=== PATIENT | male | born 1990 | race Caucasian/White ===

== ENCOUNTER 2016-04-24 01:12 | Inpatient (IN) | payer OTHER ==
[~2016-04-24] VITALS: Ht 188 cm; Wt 90.4 kg
[~2016-04-24 01:12] MED LIST: ABILIFY5 M1 PO; ESCITALOPRAM OX10 MG PO
--- NOTE | 2016-04-24 01:20 | ED AMS/SEIZURE/WEAK/DIZZY ---
See Addendum History of Present Illness General Chief Complaint: Psychiatric Related Complaint Stated Complaint: "BIBA PER EMS ETOH, +SI" Source: patient Exam Limitations: intoxication Vital Signs & Intake/Output Vital Signs & Intake/Output . Allergies Coded Allergies: NO KNOWN ALLERGIES (05/07/11) Reconcile Medications Aripiprazole (Abilify) 5 MG TABLET 1 TAB PO DAILY DEPRESSION Escitalopram Oxalate 10 MG TABLET 1 TAB PO DAILY DEPRESSION Triage Nurses Notes Reviewed? yes Onset: Gradual Duration: week(s):, waxing and waning Timing: recent history Injury Environment: home Severity: moderate Modifying Factors: Worsens With: other (worse with alcohol). Associated Symptoms: suicidality HPI: 26-year-old gentleman with a history of alcohol abuse and dependence presents with suicidality in the context of having drunk 1 L of vodka throughout the evening. He expressed to his parents that he wanted to kill himself. He expressed to the medics that he also wanted to kill himself. He does not articulate a plan. Spinning in alcohol detox 3 times. He is unclear if he has ever had seizures from his alcohol withdrawal. He denies other active drug use. He denies hallucinations and homicidality. Past History Travel History Traveled to [place] past 21 day No Medical History Any Pertinent Medical History? see below for history Neurological: NONE EENT: NONE Cardiovascular: NONE Respiratory: NONE Gastrointestinal: NONE Hepatic: NONE Renal: NONE Musculoskeletal: NONE Psychiatric: alcohol dependence, depression, ADHD Endocrine: NONE Blood Disorders: NONE Cancer(s): NONE Surgical History Surgical History: Surgery for pyloric stenosis. Psychosocial History Who do you live with Family Services at Home None What is your primary language Italian Family History Family History, If Any: MOTHER (Skin cancer). grandmother (diabetes). Hx Contributory? No Review of Systems Review of Systems Constitutional: Reports: no symptoms. EENTM: Reports: no symptoms. Respiratory: Reports: no symptoms. Cardiovascular: Reports: no symptoms. GI: Reports: no symptoms. Genitourinary: Reports: no symptoms. Musculoskeletal: Reports: no symptoms. Skin: Reports: no symptoms. Neurological/Psychological: Reports: no symptoms. Hematologic/Endocrine: Reports: no symptoms. Immunologic/Allergic: Reports: no symptoms. All Other Systems: Reviewed and Negative Physical Exam Physical Exam General Appearance: well developed/nourished, mild distress, intoxicated Head: atraumatic, normal appearance Eyes: Bilateral: normal appearance. Ears, Nose, Throat: normal pharynx Neck: normal inspection, supple, full range of motion Respiratory: normal breath sounds, no respiratory distress Cardiovascular: regular rate/rhythm Gastrointestinal: normal bowel sounds Extremities: normal range of motion Neurologic/Psych: no motor/sensory deficits, awake, alert, oriented x 3 Skin: intact, normal color Core Measures ACS in differential dx? No CVA/TIA Diagnosis: No Severe Sepsis Present: No Septic Shock Present: No Progress Differential Diagnosis: alcohol intoxication, electrolyte imbalance, depression Plan of Care: Orders Procedure Date/time Status Continuous Observation Monitor 04/25 0520 Active Regular Diet 04/24 B Active Continuous Observation Monitor 04/24 0920 Active Continuous Observation Monitor 04/24 121 Active URINE DRUG SCREEN FOR ER ONLY 04/24 121 Active ETHANOL 04/24 121 Active COMPREHENSIVE METABOLIC PANEL 04/24 121 Active CBC WITHOUT DIFFERENTIAL 04/24 121 Active ED CRISIS PSYCH CONSULT 04/24 121 Active Initial ED EKG: none Hand-Off Endorsed To: ALISON FONTAINE,ED Morgan Endorsed Time: 0700 Pending: consult Departure Departure Disposition: HOME OR SELF CARE Condition: Stable Clinical Impression Primary Impression: Depression Secondary Impressions: Alcohol intoxication Referrals: SWAPNIL WEEKS APRN (PCP/Family) Departure Forms: Customer Survey General Discharge Information
--- NOTE | 2016-04-24 01:20 | NUR ---
PT BIBA ON PEER FOR SUICIDAL COMMENTS. PT ARRIVES WITH SLURRED SPEACH, ADMITS TO ETOH. STATES DRINKS A LITER OF VODKA DAILY AND HAS BEEN DOING SO FOR A YEAR. DENIES RECENT DRUGS, ADMITS TO INJECTING HEROIN 2 WEEKS AGO AND INJECTING MARIJUANA 1 WEEK AGO. UNSTEADY GAIT. PT COOPERATIVE FOR WANDING WITH LARGE EXAGERATED ARM MOVEMENTS OUT TO THE SIDE. COOPERATIVE FOR CHANGING INTO BLUE SCRUBS AND REMOVING EAR PIERCING. THEN MOOD BECAME LABILE, PT OUT OF THE ROOM MULTIPLE TIMES WITH UNSTEADY GAIT. YELLING PROFANITIES AND THREATENING STAFF. REDIRECTED BACK TO ROOM, MULTIPLE TIMES. SECURITY AND SITTER IN ATTENDANCE
--- NOTE | 2016-04-24 01:45 | NUR ---
SECURITY REPORTED THAT PATIENT PUNCHED THE DOOR FRAME AND THE WALL WITH HIS RIGHT HAND AND BANGED HIS HEAD AGAINST THE WALL. NO OBVIOUS INJURY NOTED. DR LION MADE AWARE
--- NOTE | 2016-04-24 01:55 | NUR ---
PT CONTINUES TO COME OUT OF ROOM, YELLING AT STAFF. REQUESTED BREATHALIZER AND THEN REFUSED TO DO BREATHALIZER. MAKING FISTS AND HOLDING THEM UP IN FRONT OF HIS CHEST, THREATENING STAFF. SECURITY AND DR LION IN ATTENDANCE. UNABLE TO DEESCALATE PT VERBALLY. MEDICATED WITH 2 MG ATIVAN, 5 MG HALDOL AND 50 MG BENADRYL FOR PT AND STAFF SAFETY. PT CONTINUES TO YELL AT STAFF, DEMANDING TO BE ALLOWED TO SMOKE, DEMANDING TO BE ALLOWED TO GO HOME, ASKING TO SEE HIS PARENTS. REPEATEDLY YELLING FOR HIS MOTHER "MOM! MOM! MOM!" IQRA REMAINS IN ATTENDANCE. WILL CONTINUE TO MONITOR
--- NOTE | 2016-04-24 02:00 | NUR ---
PT REQUESTED WATER. CUP OF WATER GIVEN TO PATIENT, PT DRANK THE WATER AND THEN THREW THE CUP ACROSS HIS ROOM.
[2016-04-24 02:51] LABS: ABSOLUTE BASOPHIL COUNT 0 /CUMM (0.0-0.2); ABSOLUTE EOSINOPHIL COUNT 0.2 /CUMM (0.0-0.7); ABSOLUTE GRANULOCYTE CT 3.5 /CUMM (1.4-6.5); ABSOLUTE MONOCYTE COUNT 0.4 /CUMM (0.10-0.60); BASOPHIL % 0.4 % (0.0-2.0); EOSINOPHIL % 2.1 % (0-5); GRANULOCYTE % 49.6 % (42.2-75.2); MEAN CORPUSCULAR HGB 30.7 PG (27.0-31.0); MEAN CORPUSCULAR HGB CONC 33.8 G/DL (33.0-37.0); MEAN CORPUSCULAR VOLUME 90.7 FL (80.0-94.0); MEAN PLATELET VOLUME 8.8 FL (7.4-10.4); PLATELET COUNT 193 /CUMM (130-400); RBC DISTRIBUTION WIDTH 12.6 % (11.5-14.5); RED BLOOD CELL CT 5.08 /CUMM (4.70-6.10); WHITE BLOOD CELL COUNT 7.1 /CUMM (4.8-10.8)
--- NOTE | 2016-04-24 03:13 | NUR ---
BLOODS DRAWN AND SEN TTO LAB
--- NOTE | 2016-04-24 05:10 | NUR ---
PT CONTINUES TO SLEEP. REGULAR RESPIRATIONS NOTED. SITTER REMAINS IN ATTENDANCE
--- NOTE | 2016-04-24 07:29 | NUR ---
PT APPEARS TO BE SLEEPING AT THIS TIME TIME WITH EQUAL CHEST RISE AND FALL NOTED SITTER PRESENT IN BH AREA AND AWARE URINE SAMPLE IS NEEDED WHEN PT IS AWAKE WILL CONTINUE TO MONITOR
--- NOTE | 2016-04-24 10:21 | NUR ---
PT HAS BEEN MOVING AROUND IN BED INDEPENDENTLY - SELF REPOSITIONING SITTERS AWARE PT NEEDS TO PROVIDE URINE WHEN AWAKE
--- NOTE | 2016-04-24 11:36 | NUR ---
JESSICA, TO/FROM RADIOLOGY. YAZMIN.
--- NOTE | 2016-04-24 11:41 | RADIOLOGY REPORT ---
EXAMINATION: XR HAND, RIGHT CLINICAL INFORMATION: Right hand pain after punching wall COMPARISON: None TECHNIQUE: Right hand, 3 views FINDINGS: Bones, joints and soft tissues of the hand and wrist are unremarkable. No arthritic deformity, acute fracture or malalignment. IMPRESSION: No acute osseous injury within the right hand.
--- NOTE | 2016-04-24 11:48 | NUR ---
PT UNABLE TO PROVIDE URINE SAMPLE AT THIS TIME, WATER PROVIDED. PT WILL TRY LATER.
--- NOTE | 2016-04-24 14:13 | NUR ---
BREATHALYZER .005 AT THIS TIME.
--- NOTE | 2016-04-24 14:43 | NUR ---
URINE SPECIMEN SENT TO LAB
--- NOTE | 2016-04-24 15:51 | ED PSY CRISIS COLLATERAL NOTE ---
Collateral Note Collateral Note Family/Inform/Angelito Contacts: Pt was BIBA on a PEER after his parents called that police because pt drank a bottle of alcohol and expressed SI. Crisis spoke with Pt's Mother Johanne Bynum . She expressed that she is very worried for pt and thinks he will kill himself. Mom explained that pt goes outdoors in the freezing cold in his shorts in the middle of the night. He has been stealing money. He sneaks out of the home by jumping off the roof of the house. Mom reports that pt was admitted to [facility] in September of 2015 after a suicide attempt of walking into traffic while intoxicated. Pt went straight to [place] from [facility] and relapsed 1 week after he left [place]. Pt returned to [place] again Oct to Dec and then went to a Rehab in [place] Dec to January. Pt has not followed up in any out pt tx and stopped taking his psych meds and has relapsed again. Mom reported that he stopped working and barely can get out of bed because he has been so depressed. Mom expressed great concern for pt and advocates for his admission to [facility] and once stabilized and would like him to go back to the [place] rehab as she thinks he did better there than [place]. Mom would like to be updated on pt's final dispo.
--- NOTE | 2016-04-24 16:38 | NUR ---
PT RESTING COMFORTABLY. DINNER ORDERED.
--- NOTE | 2016-04-24 18:34 | NUR ---
Crisis evaluation completed. Pt to be admitted to [facility].
--- NOTE | 2016-04-24 19:17 | ED PSYCH CRISIS CONSULTATION ---
Crisis Consult Basic Assessment Date of Consult: 04/24/16 Responsible Person/Accompanied By: Self Insurance Authorization: Insurance #1: Insurance name: GLORIA LEO Phone number: Policy number: [id number] Group number: [id number] Authorization number:[id number] Authorized for 1 day Review on 04/25/16. ED Provider: Patient's ED Provider: ESTELA LION MD Primary Care Physician: Patient's PCP: SWAPNIL WEEKS APRN PCP's Current Psychiatrist: Vanesa Schulte MD Chief Complaint: Psychiatric Related Complaint Patient's Quote: "I'm here because I said I wanted to kill myself" Present Illness: Pt is a 26 year old single male BIBA on PEER for threats of suicide. Pt's BAL was .276 two hours after he arrived at the ED. Initially pt was combative, argumentative, impulsive, physically aggressive punching doors in the ED. Pt was alert, oriented and sober during the interview. He states that he has been feeling depressed and hopeless, he can't find work. He denies homicidal thoughts and hallcinations. Mood depressed and anxious. Pt was , cooperative but clearly poor concentration and limited eye contact. Attitude was nonchalant. Pt was able to verbalize that he was here because "I want to kill myself", no plan. Pt provided some psychiatric history that included medication treatment for Depression & Anxiety. However he discontinued the medications approximately three weeks ago. Medications he mentioned were Ability, Neurotin, Lexapro and Trazodone. Also pt states he was diagnosed with ADHD as a child and took Ritalin until 6th grade. Pt states he was admitted here at [facility] before for a suicide attempt in August, where he attempted to walk into traffic while intoxicated. Also, he mentioned two years ago he tried to hang himself. Although he endorsed feeling suicidal, pt did not specify a plan. According to Johanne Bynum, pt's mother he has been drinking and using marijuana for weeks. She described a recent history where he stole $17,000 from them for his substance use. "he lives of off energy drinks, alcohol and drugs, I'm afraind he's gonna kill himself". Pt admitted to drinking 1 liter of Vodka today and said he has been drinking since New Years gabbi when he started with a glass of Champagne and shots with his parents. "I'm drinking their Vodka, I'm sure they're upset". Pt spent two months in substance abuse treatment at a [facility] in [place]. He was in treatment there from December, to March 2016. Pt was treated for opioid use disorder & cocaine use disorder ( crack cocaine). Prior to going to the Rehab in [place] he was admitted to substance abuse treatment at [facility] in August, after his inpatient treatment here at [facility]. Pt relapsed 1 week after he was discharged from [facility]. He was redmitted to [facility] in October and was discharged in December,. Patient's Address: [address] [place] [address] [place] Other Phone Number: Who Do You Live With? Patient and family Family/Informants Interviewed: Phone contact with Johanne Bynum . Mother feels pt is at risk and that he will act on threats to harm himself. She is convinced of this since the pt attempted suicide twice in the past. As recently as August, when he was admitted here at [facility]. Allergies - Coded Allergies: NO KNOWN ALLERGIES (05/07/11) Current Medications - Scheduled Medications Aripiprazole (Abilify) 5 MG TABLET 1 TAB PO DAILY DEPRESSION #30 TAB Prescribed by CONY JACKSON PA-C on 11/11/15 Escitalopram Oxalate 10 MG TABLET 1 TAB PO DAILY DEPRESSION #30 TAB Prescribed by CONY JACKSON PA-C on 11/11/15 Laboratory Results: Laboratory Tests 04/24/16 1431: Urine Opiates Screen < 100.00, Methadone Screen < 40, Barbiturate Screen < 60, Ur Phencyclidine Scrn < 6.00, Amphetamines Screen < 100, U Benzodiazepines Scrn < 85, Urine Cocaine Screen < 50, Urine Cannabis Screen 50.00 04/24/16 0215: Anion Gap 16, Estimated GFR > 60, BUN/Creatinine Ratio 10.0, Glucose 98, Calcium 9.3, Total Bilirubin 0.3, AST 23, ALT 25, Alkaline Phosphatase 63, Total Protein 7.1, Albumin 4.7, Globulin 2.4, Albumin/Globulin Ratio 2.0, CBC w Diff NO MAN DIFF REQ, RBC 5.08, MCV 90.7, MCH 30.7, RDW 12.6, MPV 8.8, Gran % 49.6, Lymphocytes % 41.9, Monocytes % 6.0, Eosinophils % 2.1, Basophils % 0.4, Absolute Granulocytes 3.5, Absolute Lymphocytes 3.0, Absolute Monocytes 0.4, Absolute Eosinophils 0.2, Absolute Basophils 0, PUBS MCHC 33.8, Serum Alcohol 276.0 Past History Past Medical History Neurological: NONE EENT: NONE Cardiovascular: NONE Respiratory: NONE Gastrointestinal: NONE Hepatic: NONE Renal: NONE Musculoskeletal: NONE Psychiatric: alcohol dependence, anxiety, depression, opioid dependence, ADHD Endocrine: NONE Blood Disorders: NONE Cancer(s): NONE Past Surgical History Surgical History: Surgery for pyloric stenosis. Psychosocial History Strengths/Capabilities: wants help, supportive family Physical Limitations (Interventions): none reported Psychiatric Treatment History Psych Treatment Psychiatric Treatment Yes Inpatient Treatment Yes Outpatient Treatment No Location of Treatment [place], [place] Reason for Treatment Opioid Dependence, Cocaine Abuse, ETOH Abuse Dates of Treatment December, December, January & March, Response to Treatment Relapse Diagnosis by History: ADHD - was prescribed meds as a child from 6yrs old - 13yrs old. Depression & Anxiety Substance Use/Abuse History Drug Use/Abuse Substances Used/Abused Yes Substance Used/Abused Alcohol First Use Age 17 Last Used 04/23/15 How much used/taken 1 Liter Vodka How often Daily For how long April 02, 2016 Route of use Oral Substance Abuse Treatment Substance Abuse Treatment Past Substance Abuse TX Yes Inpatient Treatment Yes Outpatient Treatment No Location of Treatment [place], [place] Reason for Treatment Opioid Use Disorder, Cocaine Use Disorder Dates of Treatment December, December, January, March, Response to Treatment Relapse on Marijuana & Alcohol Current Mental Status Mental Status Orientation: Person, Place, Situation Affect: Anxious, Depressed, Flat, Hopeless, Sad Speech: Pressured Neuro-vegetative: Appetite Decreased, Concentration Poor, Energy Decreased, Helpless, Sleep Disturbance Appearance Appearance- Dress/Hygiene: Disheveled, full facial hair, poor hygiene Behaviors Thought Process: Disorganized Thought Content: No insight Memory: Impaired Insight: Poor SI/HI Risk Assessment Past Suicidal Ideation/Attempts Yes Current Suicidal Ideation/Att Yes (No Plan) Past Homicidal Ideation/Att: No Current Homicidal Ideation/Attempts No Degree of Intent: Self Destructive/No , Thoughts and attempts Danger To: Self Gravely Disabled: Lack of Insight, Poor Impulse Control, Poor Judgment Risk Factors: high anxiety/distress, history of suicide atmpts, SA/MH hospitalized, substance abuse, poor impulse control, male Lethality Ratin PTSD Checklist PTSD Done? patient declined ED Management Sitter: Yes Restraints: No DSM5/PS Stressors/Medical Prob Diagnosis' (DSM 5, Stressors, Medical): 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 Departure Disposition Psych Medical Clearance Date: 04/24/16 Medically Cleared at: 0800 Time Started: 0515 Time Ended: 0602 Psychiatrist Consulted: Vanesa Schulte MD Date Disposition Established: 04/24/16 Time Disposition Established: 07 Plan for Disposition - Modality: Inpatient Psychiatry Facility: [facility] Follow-up Appt Date: 04/24/16 Follow-Up Appt Time: 2106 Contact: [facility] Telephone: [phone] Rationale for Disposition: Pt present to the ED intoxicated with suicidal thoughts. Pt has a history of suicidal attempts x2 including a hanging and an attempt to walk into traffic, September 2015. Pt discontinued his psychotropic medications approximately 3 weeks ago. Pt's symptoms are implusivity, manic aggressive behaviors, substance use and binge drinking. Pt presents in acute distress and is at risk for of suicide due to self-destructive behaviors, recent suicide attempt and ETOH & substance use. Type of IP Admission: Voluntary Referrals SWAPNIL WEEKS APRN (PCP/Family)
--- NOTE | 2016-04-24 19:42 | NUR ---
PT REMAINS CALM AND COOPERATIVE. OFFERS NO COMPLAINT. PENDING BED IN [facility].
--- NOTE | 2016-04-24 19:59 | NUR ---
ED [facility] UNABLE TO ACCEPT REPORT AT THIS TIME.
--- NOTE | 2016-04-24 20:54 | NUR ---
REPORT GIVEN TO ED [facility]
[2016-04-24] MEDS ORDERED: ST. JOHN'S WOR150 M1 PO (21:48)
[2016-04-24] MEDS ORDERED: LEMON BALM (21:50)
--- NOTE | 2016-04-24 21:50 | IP CRISIS DIAG ASSESS PSYCH ---
Diagnostic Assessment Basic Assessment Insurance Authorization: Insurance #1: Insurance name: GLORIA LEO Phone number: Policy number: [id number] Group number: [id number] Authorization number: [id number] Authorized 1 day Review on 04/25/16 Primary Care Physician: Patient's PCP: SWAPNIL WEEKS APRN PCP's Patient's Quote: "I'm here because I said I wanted to kill myself" Present Illness: Pt is a 26 year old single male BIBA on PEER for threats of suicide. Pt's BAL was .276 two hours after he arrived at the ED. Initially pt was combative, argumentative, impulsive, physically aggressive punching doors in the ED. Pt was alert, oriented and sober during the interview. He states that he has been feeling depressed and hopeless, he can't find work. He denies homicidal thoughts and hallcinations. Mood depressed and anxious. Pt was , cooperative but clearly poor concentration and limited eye contact. Attitude was nonchalant. Pt was able to verbalize that he was here because "I want to kill myself", no plan. Pt provided some psychiatric history that included medication treatment for Depression & Anxiety. However he discontinued the medications approximately three weeks ago. Medications he mentioned were Ability, Neurotin, Lexapro and Trazodone. Also pt states he was diagnosed with ADHD as a child and took Ritalin until 6th grade. Pt states he was admitted here at [facility] before for a suicide attempt in August, where he attempted to walk into traffic while intoxicated. Also, he mentioned two years ago he tried to hang himself. Although he endorsed feeling suicidal, pt did not specify a plan. According to Johanne Bynum, pt's mother he has been drinking and using marijuana for weeks. She described a recent history where he stole $17,000 from them for his substance use. "he lives of off energy drinks, alcohol and drugs, I'm afraind he's gonna kill himself". Pt admitted to drinking 1 liter of Vodka today and said he has been drinking since New Years gabbi when he started with a glass of Champagne and shots with his parents. "I'm drinking their Vodka, I'm sure they're upset". Pt spent two months in substance abuse treatment at a Rehabilitation Program called [facility] in [place]. He was in treatment there from December, to March 2016. Pt was treated for opioid use disorder & cocaine use disorder ( crack cocaine). Prior to going to the Rehab in [place] he was admitted to substance abuse treatment at [facility] in August, after his inpatient treatment here at [facility]. Pt relapsed 1 week after he was discharged from [facility]. He was redmitted to [facility] in October and was discharged in December,. Patient's Address: [address] [place] [address] [place] Other Phone Number: Who Do You Live With? Patient and family Feel Safe Where You Live? Yes Feel Safe in Your Relationship Yes Marital Status: single Do You Have Children? No Primary Language? Monegasque Language(s) Spoken At Home: Monegasque Family/Informants Interviewed: Phone contact with Johanne Bynum . Mother feels pt is at risk and that he will act on threats to harm himself. She is convinced of this since the pt attempted suicide twice in the past. As recently as August, when he was admitted here at [facility]. Allergies - Coded Allergies: NO KNOWN ALLERGIES (05/07/11) Current Medications - Scheduled Medications Aripiprazole (Abilify) 5 MG TABLET 1 TAB PO DAILY DEPRESSION #30 TAB Prescribed by CONY JACKSON PA-C on 11/11/15 Escitalopram Oxalate 10 MG TABLET 1 TAB PO DAILY DEPRESSION #30 TAB Prescribed by CONY JACKSON PA-C on 11/11/15 Consequences of Psych Med Use: Less Depressed and anxious, able to tolerate emotions and cope with daily stressors. Lab Results: Laboratory Tests 04/24/16 1431: Urine Opiates Screen < 100.00, Methadone Screen < 40, Barbiturate Screen < 60, Ur Phencyclidine Scrn < 6.00, Amphetamines Screen < 100, U Benzodiazepines Scrn < 85, Urine Cocaine Screen < 50, Urine Cannabis Screen 50.00 04/24/16 0215: Anion Gap 16, Estimated GFR > 60, BUN/Creatinine Ratio 10.0, Glucose 98, Calcium 9.3, Total Bilirubin 0.3, AST 23, ALT 25, Alkaline Phosphatase 63, Total Protein 7.1, Albumin 4.7, Globulin 2.4, Albumin/Globulin Ratio 2.0, CBC w Diff NO MAN DIFF REQ, RBC 5.08, MCV 90.7, MCH 30.7, RDW 12.6, MPV 8.8, Gran % 49.6, Lymphocytes % 41.9, Monocytes % 6.0, Eosinophils % 2.1, Basophils % 0.4, Absolute Granulocytes 3.5, Absolute Lymphocytes 3.0, Absolute Monocytes 0.4, Absolute Eosinophils 0.2, Absolute Basophils 0, PUBS MCHC 33.8, Serum Alcohol 276.0 Toxicology Screen Completed? Yes Results: positive Symptoms of Use: Suicidal threats and attempts Physically aggressive behaviors Emotional dysregulation Unsafe destructive behaviors Past History Past Medical History Medical History: None/Denies Past Surgical History Surgical History non-contributory Abuse/Trauma History Trauma History/Current Trauma: Denies Victim or Perpretator? victim (denied) Patient's Age at Time of Trauma: 0 History of Trauma/Abuse Treatment? No Abuse/Trauma Treatment: N/A Legal History Current Legal Status: none Have you ever been arrested? No Number of Arrests: [address] Dates: None reported Qa Tech None Psychosocial History Strengths/Capabilities: wants help, supportive family Physical Limitations (Interventions): none reported Psychiatric Treatment History Psych Treatment Psychiatric Treatment Yes Inpatient Treatment Yes Outpatient Treatment No Location of Treatment [place], [place] Reason for Treatment Opioid Dependence, Cocaine Abuse, ETOH Abuse Dates of Treatment December, December, January & March, Response to Treatment Relapse Diagnosis by History: ADHD - was prescribed meds as a child from 6yrs old - 13yrs old. Depression & Anxiety Risk Factors: high anxiety/distress, history of suicide atmpts, SA/MH hospitalized, substance abuse, poor impulse control, male Substance Use/Abuse History Drug Use/Abuse minimum 12mo Hx Substances Used/Abused Yes Substance Used/Abused Alcohol First Use Age 17 Last Used 04/23/15 How much used/taken 1 Liter Vodka How often Daily For how long April 02, 2016 Route of use Oral Substance Abuse Treatment Substance Abuse Treatment Past Substance Abuse [place] Yes Inpatient Treatment Yes Outpatient Treatment No Location of Treatment [place], [place] Reason for Treatment Opioid Use Disorder, Cocaine Use Disorder Dates of Treatment December, December, January, March, Response to Treatment Relapse on Marijuana & Alcohol Sexual History Sexually Active No # of partners 0 Sexual Orientation Heterosexual Use of Protection No Sexual Concerns: None reported Education History Highest Level of Education: high school/GED Preferred Learning Style: experiential Current Mental Status Mental Status Orientation: Person, Place, Situation Affect: Anxious, Depressed, Flat, Hopeless, Sad Speech: Pressured Neuro-vegetative: Appetite Decreased, Concentration Poor, Energy Decreased, Helpless, Sleep Disturbance Appearance Appearance- Dress/Hygiene: Disheveled, full facial hair, poor hygiene Behaviors Thought Process: Disorganized Thought Content: No insight Memory: Impaired Insight: Poor SI/HI Risk Assessment - Minimum 6mo History- Past Suicidal Ideation/Attempts Yes Current Suicidal Ideation/Att Yes (No Plan) Past Homicidal Ideation/Att: No Current Homicidal Ideation/Attempts No Degree of Intent: Self Destructive/No , Thoughts and attempts Danger To: Self Gravely Disabled: Lack of Insight, Poor Impulse Control, Poor Judgment Risk Factors: high anxiety/distress, history of suicide atmpts, SA/MH hospitalized, substance abuse, poor impulse control, male Lethality Ratin Needs/Init TX Plan/Goals: Monitor for safety Individual & group therapy Medication evaluation Discharge Planning and case management AUDIT-C Questionnaire: AUDIT-C Questionnaire: Response Value ETOH use in the past year 4 or more per week 4 # drinks typical/day 7-9 3 6 or > drinks per occasion Daily/Almost Daily 4 Total 11 DSM5/PS Stressors/Medical Prob Diagnosis' (DSM 5, Stressors, Medical): 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
--- NOTE | 2016-04-24 22:13 | NUR ---
26 YEAR OLD MALE PATIENT ADMITTED TO [facility] WITH DIAGNOSIS OF MAJOR DEPRESSION RECURRENT SEVERE WITH SUICIDAL IDEATION, HISTORY OF PAST SUICIDE ATTEMPTS, AND ALCOHOL DEPENDENCE; PATIENT WAS RECENTLY AT [facility] IN SEP 2015 AFTER TRYING TO WALK INTO TRAFFIC IN SUICIDE ATTEMPT WHILE DRUNK; 2 YEARS AGO HE ATTEMPTED TO HANG HIMSELF; HE DENIES A CURRENT PLAN; AFFECT BLAND, SOMEWHAT HYPERACTIVE; WHEN ASKED WHAT BROUGHT HIM TO THE HOSPITAL, HE STATED HE DID NOT REMEMBER; MOOD CONSTRICTED, NOT TALKATIVE; DID NOT SEEM INVESTED IN ADMISSION TO HOSPITAL; HE DID NOT RESPOND TO STAFF ATTEMPT TO GET HIM TO [place] ON SUICIDAL FEELINGS; MOOD SEEMED INAPPRPRIATELY LIGHT FOR CIRCUMSTANCES; HE STATED HIS INTENTION TO NOT TAKE ANY PRESCRIPTION MEDICATIONS WHILE HE IS HERE AT [facility]; HE OUTLINED SOME HERBAL SUPPLEMENTS HE HAS BEEN TRYING FOR HIS ADHD SYMPTOMS; SKIN INTACT; DR. DOCKERY WRITING ADMISSION ORDERS; DR. BURGOS NOTIFIED FOR H&P; PATIENT REPORTED DRINKING 1 LITER OF VODKA YESTERDAY, BUT DID NOT SEEM ABLE TO GIVE A DAILY ESTIMATE OF ALCOHOL USE; HE REPORTS CANNABIS USE BUT DENIES OTHER DRUG USE AT THIS TIME; HE REPORTS SOME SORENESS IN HIS RIGHT HAND FROM PUNCHING A DOOR IN EMERGENCY DEPARTMENT WHILE STILL INTOXICATED; HE DENIED INTENT TO HARM HIMSELF WHILE IN THE HOSPITAL AND ALSO DENIED INTENTION OF ANY FURTHER AGGRESSIVE BEHAVIOR WHILE IN THE HOSPITAL.
[2016-04-25] VITALS (9 sets, daily range): BP systolic 123–141; BP diastolic 60–86
--- NOTE | 2016-04-25 06:30 | NUR ---
PATIENT APPEARED TO SLEEP MOST OF THE NIGHT; VITAL SIGNS WNL; NO ISSUES.
--- NOTE | 2016-04-25 11:55 | SOCIAL WORKER SOCIAL HX PSYCH ---
IRVING ROGEL 04/25/16 1155: Social History Basic Assessment Insurance Authorization: Insurance #1: Insurance name: GLORIA LEO Phone number: Policy number: [id number] Group number: [id number] Authorization number: [place] Source of Income/Entitlements: employment Primary Language? Canadian Language(s) Spoken At Home: [place] Past History Past Medical History Neurological: NONE EENT: NONE Cardiovascular: NONE Respiratory: NONE Gastrointestinal: NONE Hepatic: NONE Renal: NONE Musculoskeletal: NONE Psychiatric: alcohol dependence, anxiety, depression, opioid dependence, ADHD Endocrine: NONE Blood Disorders: NONE Cancer(s): NONE Past Surgical History Surgical History: Surgery for pyloric stenosis. /Family History Place/Country of Origin: [place] Childhood Family Constellation: Both parents, 2 sisters Primary Childhood Caretakers: father, mother Family Life During Childhood: Good DCF Involvement? No Relationship w/Mother: we fight, argue sometimes about things. I sometimes disappear for days. Relationship w/Father: good Any Sibling(s)? Yes Sibling's Gender(s)/Age(s): female Sibling 1:, female Sibling 2: Relationship w/Sibling(s): 11yo sisterMichelle - she is developmentally challenged - has Autism and [place] 25yo sister, Peg Relationship w/Friends: some good friends. Family Psych/Sub Abuse/Add Hx: Denies Abuse/Trauma History Trauma History/Current Trauma: Denies Victim or Perpretator? victim (denied) Patient's Age at Time of Trauma: 0 History of Trauma/Abuse Treatment? No Abuse/Trauma Treatment: N/A Legal History Have you ever been arrested No Number of Arrests: 0 Hx of Juvenile Legal Charges? Yes If Yes: 18yo Breaking and entering - used [place] - did community service Hx of Adult Legal Charges? No Oracle Database Consultant None Psychosocial History Primary Support System: father, mother, sibling(s) Strengths/Capabilities: wants help, supportive family Physical Limitations (Interventions): none reported Last Physical: Can't remember Last Seizure: 2yrs ago History of Blackouts? No ADL Limitations: difficulty falling asleep 6-7 hours of sleep [place]/Social/Peer Relations some friends Meaningful Activities: dirt bike, jet ski, Quads, Motor bikes - like to fix them and ride them Childhood Rastafari: Amish Current Lutheran Affiliation: Amish Is Spirituality Important to You? No Patient's Ethnicity: Xenia, Kazakh, Are There Developmental Issues? No Milestones Achieved: WNL Psychiatric Treatment History Psych Treatment Inpatient Treatment Yes Outpatient Treatment No Location of Treatment [place], [place] Reason for Treatment Opioid Dependence, Cocaine Abuse, ETOH Abuse Dates of Treatment December, December, January & March, Response to Treatment Relapse Diagnosis: ADHD - was prescribed meds as a child from 6yrs old - 13yrs old. Depression & Anxiety Psychodynamic Issues: Alcohol abuse, drug use recent past, financial issues, employment issues. Risk Factors: high anxiety/distress, history of suicide atmpts, SA/MH hospitalized, substance abuse, poor impulse control, male Substance Use/Abuse History Drug Use/Abuse Substance Used/Abused Alcohol First Use Age 17 Last Used 04/23/15 How much used/taken 1 Liter Vodka How often Daily For how long April 02, 2016 Route of use Oral Have You Ever Attended AA? No Symptoms of Use: Suicidal threats and attempts Physically aggressive behaviors Emotional dysregulation Unsafe destructive behaviors Substance Abuse Treatment Substance Abuse Treatment Inpatient Treatment Yes Outpatient Treatment No Location of Treatment [place], [place] Reason for Treatment Opioid Use Disorder, Cocaine Use Disorder Dates of Treatment December, December, January, March, Response to Treatment Relapse on Marijuana & Alcohol Sexual History Sexually Active No # of partners 0 Sexual Orientation Heterosexual Use of Protection No Sexual Concerns: None reported Education History Highest Level of Education: high school/GED Highest Grade Completed: 12th Preferred Learning Style: experiential HX of Learning Difficulties: None reported Barriers to Learning: None reported Special Communication Needs: None reported Employment History No. 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 History Have You Been in The ? No Current Mental Status Mental Status Orientation: Person, Place, Situation Affect: Anxious, Depressed, Flat, Hopeless, Sad Speech: Pressured Neuro-vegetative: Appetite Decreased, Concentration Poor, Energy Decreased, Helpless, Sleep Disturbance Appearance Appearance- Dress/Hygiene: Disheveled, full facial hair, poor hygiene Behaviors Thought Process: Disorganized Thought Content: No insight Memory: Impaired Insight: Poor SI/HI Risk Assessment Past Suicidal Ideation/Attempts Yes Current Suicidal Ideation/Att Yes (No Plan) Past Homicidal Ideation/Att: No Current Homicidal Ideation/Attempts No Degree of Intent: Self Destructive/No , Thoughts and attempts Danger To: Self Gravely Disabled: Lack of Insight, Poor Impulse Control, Poor Judgment Lethality Ratin - Conclusion and Recommendations for treatment - and discharge planning YEVGENIY DORSEY LCSW 04/25/16 1346: Social History Basic Assessment Insurance Authorization: Insurance #1: Insurance name: GLORIA LEO Phone number: Policy number: [id number] Group number: [id number] Authorization number: Curr Source of Income/Entitlements: employment Primary Care Physician: Patient's PCP: SWAPNIL WEEKS APRN PCP's Present Problem: Pt arrived to ER combative and intoxicated, upon reevaluation pt was suicidal after disappointment of relapsing on etoh. Pt is impulsive and can be wreckless. Primary Language? Canadian Language(s) Spoken At Home: [place] Living Situation Other Living Arrangement: relative's/guardian's ezekiel Feel Safe Where You Are Living Yes Feel Safe in Relationships? Yes Allergies - Coded Allergies: NO KNOWN ALLERGIES (05/07/11) Current Medications - Scheduled Medications Aripiprazole (Abilify) 5 MG TABLET 5 MG PO DAILY mood stabilization #14 TAB Prescribed by GORDY WEINER APRN on 04/28/16 Escitalopram Oxalate (Lexapro) 10 MG TABLET 10 MG PO DAILY depression/anxiety #14 TAB Prescribed by GORDY WEINER APRN on 04/28/16 Scheduled PRN Medications Hyoscyamine (Levsin) 0.125 MG TABLET 1 TAB PO Q4 PRN ABDOMINAL SPASMS #30 TAB Prescribed by MARIO ZAVALETA on 05/17/16 Past History /Family History Place/Country of Origin: [facility] Childhood Family Constellation: 1 older sister, 1 younger sister Primary Childhood Caretakers: father, mother Family Life During Childhood: great, parents raised me well, always provided for us DCF Involvement? No Mother's Age (Current/): 45 Relationship w/Mother: get along Father's Age (Current/): 46 Relationship w/Father: good Any Sibling(s)? Yes Sibling's Gender(s)/Age(s): female Sibling 1:, female Sibling 2: Relationship w/Sibling(s): good, we are close Relationship w/Friends: very few friends at this time Family Psych/Sub Abuse/Add Hx: drug of choice (denies) Abuse/Trauma History Trauma History/Current Trauma: Denies Legal History Current Legal Status: none Pending Court Dates: denies Have you ever been arrested Yes Number of Arrests: 3 Hx of Juvenile Legal Charges? Yes If Yes: unknown Hx of Adult Legal Charges? No Civil Proceedings: none Domestic Relations Court: none Child Protective Serv Involvmnt none Oracle Database Consultant none Psychosocial History Primary Support System: father, mother Strengths/Capabilities: likes to read, wants another job Weaknesses: impulsive Last Physical: unknown History of Seizures? No History of Blackouts? Yes Last Blackout: when he drinks ADL Limitations: unknown [place]/Social/Peer Relations limited sober supports Meaningful Activities: works on cars, reads, wants to get operating license for heavy equipment Childhood Rastafari: no samaritan stated Current Lutheran Affiliation: no samaritan stated Is Spirituality Important to You? yes Cultural/Ethnic Issues: denies Are There Developmental Issues? No Milestones Achieved: fine motor, gross motor Psychiatric Treatment History Psychodynamic Issues: Pt has been spotty with recovery although has made attempts to get involved in AA since he was 19. Risk Factors: high anxiety/distress, SA/MH hospitalized, substance abuse, poor impulse control, male Substance Use/Abuse History Have Had Periods of Sobriety? Yes Explain: 3 weeks clean from illegal substances, recent binge was etoh. Relapse History? Yes Explain: 3 weeks clean from illegal substances, recent binge was etoh. Have You Ever Attended AA? Yes Do You Attend AA Currently? No Do You Have a Sponsor? No Other Community Resources Used: plans to attend AA again, has been "in rooms" since he was 19 Sexual History Sexually Active No # of partners 0 Sexual Orientation Heterosexual Sexual Concerns: denies Education History Highest Level of Education: high school/GED Number of College Years: 0 Preferred Learning Style: experiential HX of Learning Difficulties: None reported, ADHD? 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 of Jobs in Last 5 Years: 5 Attendance: Normal Performance: Average Comments: Pt looking to gain a liscense to operate [employer] History Have You Been in The ? No Current Mental Status - Conclusion and Recommendations for treatment - and discharge planning - Conclusion and Recommendations for treatment - and discharge planning
--- NOTE | 2016-04-25 11:55 | SOCIAL WORKER PROG NOTE PSYCH ---
Social Work Progress Note Progress Note Pt was cooperative, and did not mention wanting to leave the hospital, he admits to suicidal thoughts and upset with relaspe, he reports being impulsive, and is aware that his actions have been risky. Pt exhibits litttle insight. 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 He reports being interested in returning to . Pt completed psychosocial.
--- NOTE | 2016-04-25 13:40 | CPS MD/APRN INITIAL ASSE PSYCH ---
Psychiatric Admission Project Superintendent's Note Reviewed: Yes Patient Seen and Examined: Yes Identifying Information: Patient is a 26-year old male. Chief Complaint: "I drank a little bit too much and said I wanted to kill myself, but I dont." Reaction to Hospitalization: "I just want to go home." History of Present Illness Onset of Illness: Patient is a 26-year old male with a history of depression and anxiety, alcohol use disorder, and recent history of cannabis use disorder, opiate use disorder, crack/cocaine use disorder (in remission since 01/2016). Patient had been hospitalized [facility] (09/02/15 - 09/08/15) following intoxication on alcohol and attempting to walk into traffic while under the influence. He presented to ED on 04/24/16 by ambulance on a PEER for threats of suicide with BAL=0.276. Had been combative and aggressive while in ED. On encounter today, patient could not recall the events leading to present hospitalization. Could only recall that he had been drinking. He denies SI, HI, AVH. He denied acute symptoms of anxiety and depression. Denied feeling hopeless , helpless, and worthless. Denies changes in appetite and sleep. He reported being resistant to trialing all psychotropic medications, and reported "I don't have any symptoms to treat, I'm happy, I'm fine." Patient reported that if he is started on medications while in hospital, he will stop them when he is discharged. Patient appeared to minimize his alcohol use during encounter. He had limited insight into risky consequences which have resulted from his alcohol use (present circumstance, and last inpt hospitalization in where he attempted to walk into traffic while intoxicated). At present, patient exhibits low motivation to stop drinking. He denied urges/cravings to use alcohol. He reported being sober from all other illicit substances since 01/2016, when he was admitted to a [facility] rehab. Circumstances Leading to Admission: Alcohol intoxication, reports of +SI. Problem(s) Justifying Need for Admission: Pt reported + SI, no plan. Past Psychiatric History Past Diagnosis(es)- if any: Unspecified Depression Alcohol use disorder Polysubstance use disorder (Heroin, cocain, cannabis) ADHD by hx per pt report Past Precipitating Factors- if any: Polysubstance use - Include inpatient and outpatient treatment Treatment History: Inpatient: [facility] (09/02/15-09/08/15) Outpatient: Pt denied. Substance abuse rehabs: [facility] x 2 in (2014 + 2015) [facility]) 01/2016 - 03/2016 History of Suicide Attempts or Gestures Patient reported walking into traffic while intoxicated which resulted in his 2015 [facility] hospitalization. Per Crisis Eval, patient admitted to attempting to hang himself "2 years ago." When confronted with this on interview, patient denied. Substance Abuse History: Alcohol: pt reported sporadic "binge drinking." Could not recall how much he drinks on each encounter, as he reported a history of blacking out. OC:04/23/16. Reported OC prior to that was on 2015. Denied a history of complicated alcohol withdrawal. Denied history of withdrawal Szs or DTs. Patient denied the use of all other illicit substances. Reported OC of crack/ cocaine, heroin and cannabis were in 01/2016 prior to [place] rehab stay. Tobacco: 1PPD cigarettes. Allergies: Coded Allergies: NO KNOWN ALLERGIES (05/07/11) Home Med List: Patient denied taking prescribed medications outside of hospital. Reported last taking prescription medications was between 01/2016-03/2016 at rehab. Reported running out of Abilify and Lexapro, and then never resuming psychotropic med management. Reported taking the following supplements at home x last 2 days: [place]'s Wart, 2 caps of 150mg daily. Lemon [place] (dose unknown) Valerian root (dose unknown) Reviewed the risks of using prescribed antidepressants together with [place]'s Wart and other supplements. Patient verbalized understanding of education. - Include any medical condition(s) that may - impact the patient's recovery/remission Past Medical History: Pt denied. Past History Medical History Neurological: NONE EENT: NONE Cardiovascular: NONE Respiratory: NONE Gastrointestinal: NONE Hepatic: NONE Renal: NONE Musculoskeletal: NONE Psychiatric: alcohol dependence, anxiety, depression, opioid dependence, ADHD Endocrine: NONE Blood Disorders: NONE Cancer(s): NONE History of MRSA: No History of VRE: No History of CDIFF: No Isolation History: Standard Surgical History Surgical History: non-contributory Psychiatric Family/Social Hx Family History Psychiatric Illness: Mother - depression Pt denied other known family history of psychiatric illness. Substance Use: Patient denied a known family history of substance abuse. Suicides: Patient denied a known family history of suicide attempts. Social History Living Situation: Patient lives at home with parents, 12 y/o sister, and 26y/o mentally handicapped sister in [place]. Significant Relationships (family/friends): Patient reported his parents as being his primary supports. Education: HS Diploma Vocation/Occupation: Last employment was for a [employer]. Reported he temporarily is not working. Legal: Patient reported prior legal charges at 19y/o for breaking and entering. Denied present legal charges. Healthly Behaviors Screening Tobacco Screening Tobacco Use from ED Docu: Current Daily Use Daily Tobacco Use Amount/Type: => 5 Cigarettes daily - If tobacco counseling indicated - the following topics are required. - #1 Recognizing dangerous situations. - #2 Coping Skills. - #3 Basic information about quitting. Status of Tobacco Cessation Counseling: #1, #2 AND #3 Completed Cessation Med Status: Nicotine Patch Ordered Alcohol Screening - ETOH screen POS if BAL >=80 or Audit-C>= M4/F3 Audit-C Score from Diag Assess: 11 Blood Alcohol Level: Laboratory Tests 04/24 0215 Toxicology Serum Alcohol (<10 MG/DL) 276.0 Alcohol Use Screening Results: Pos per Audit C &/or BAL - If ETOH counseling indicated - the following topics are required. - #1 Express concern about the patient's - drinking at unhealthy levels, include informing - of national norms for moderate drinking: - men <= 14 drinks/week, max 4 drinks/occasion - women <= 7 drinks/week, max 3 drinks/occasion - #2 Providing feedback, including linking alcohol to - negative physical effects (liver injury, hypertension) - negative emotional effects (relationship problems and - depression) - negative occupational consequences (reduced work - performance) - #3 Advising the patient to abstain from alcohol or - to drink below national norms for moderate drinking - (as listed above). Status of ETOH Use Counseling: #1, #2 AND #3 Completed. Metabolic Screening - Screen if on a Neuroleptic Medication - Metabolic screening should include: - Blood Pressure, BMI, Glucose or Hgb A1c, & a - Lipid profile from within the past 365 days. Metabolic Screening () Not Applicable, patient not on a neuroleptic. OR ([X]) Patient on a neuroleptic(s) . Enter below results for Glucose or Hemoglobin A1C, and lipid panel if obtained during the last 365 days. BMI: 25.600 Blood Pressure: 123/86 Laboratory Results (If applicable): Lipid panel ordered for tomorrow morning. Lab Glucose 98 mg/dL 04/24/16 0215 Exam and Plan Mental Status Examination Ambulation Status: Steady and independent Appearance: Tall, blonde hair, , athletic build. Wearing blue paper scrubs. Well- groomed. Attitude towards examiner: Calm, generally cooperative. Psychomotor activity: WNL Behavior: WNL Quality of speech: Normal in rate, tone and volume. Affect: Full-range Mood: "Fine" Suicidal Ideation: Pt denied. Homicidal Ideation: Pt denied. Hallucinations: Pt denied AH/VH/TH. Paranoid/Delusional Material: None evident. Difficulties with thought organization: None evident. Insight: Limited Judgment: Limited Orientation: A&Ox3 Cognition: Grossly intact Memory Function: Grossly intact Estimate of intellectual functioning: Average Assets/Strengths Patient Identified Assets/Strengths: Supportive family Impression/Plan Impression and Plan: Patient is a 26-year old male with a history of unspecified depression, polysubstance use, and current alcohol use disorder who presented to ED by ambulance on PEER after making suicidal threats in the context of alcohol intoxication secondary to unclear psychosocial stressors, lack of outpatient psychiatric treatment/recovery support, limited coping, judgement and insight surrounding alcohol use. Patient is resistant to starting psychotropic medications at present, and feels strongly about being discharged as he feels there are no underlying symptoms to target with inpatient level of care. Termination of voluntary offered to patient. - Include all active medical diagnosis that require tx DSM 5 Diagnosis(es): MDD, recurrent, severe Alcohol use disorder, severe Opioid use disorder, in remission since 01/2016 Cocaine Use disorder, in remission since 01/2016 Cannabis use disorder, in remission since 01/2016 - Initial Tx Plan for Active Psych & Medical Conditions Treatment Plan: 1. Monitor the patient on unit for safety ,suicidal ideation, mood and alcohol withdrawal. 2. Q4H CIWA w/awake monitoring for alcohol withdrawal. Utilize prn ativan per CIWA protocol. VSS. 3. Continue to offer Lexapro 10mg daily for depression/anxiety. 4. Continue to offer Abilify 5mg daily for mood stabilization. 5. Admission H&P per video producer team. 6. Obtain collateral from family. 7. Once clinically stable, patient will be referred to an appropriate level of dual treatment. 8. Lipid panel scheduled for tomorrow morning at 0600. - Factors that would help patient function - in a less restrictive setting. Factors: Alleviation of suicidal ideation. Mood stabilization. Abstain from all substances. Referral to appropriate level of psychiatric care post-discharge.
--- NOTE | 2016-04-25 14:44 | NUR ---
PT WAS NOT VISIBLE MUCH IN THE [place] TODAY. PT STAYED MOST OF THE TIME IN HIS BEDROOM, SLEEPING. HE DID NOT PARTICIPATE IN ANY GROUPS, HAD SOME INTERACTIONS WITH PEERS BETWEEN GROUPS. HE HAS BEEN COMPLIANT ABOUT GETTING HIS VITALS TAKEN. WHEN ASKED IF PT HAS THOUGHTS OF HARMING SELF, PT DENIES.
--- NOTE | 2016-04-25 15:19 | History & Physical ---
General Information and HPI MD Statement: I have seen and personally examined LORRI SINGH and documented this H&P. The patient is a 26 year old M who presented with a patient stated chief complaint of suicidal ideation Source of Information: patient Exam Limitations: no limitations History of Present Illness: 26 y/o with pmh sig for alcohol dependence, anxiety, depression, opioid dependence, ADHD is admitted to Inpatient Psychiatry after he drank large amount of alcohol and expressed suicidal ideation. Patient has been feeling depressed. He has hard time finding jobs. He has also stopped taking all of his psychiatric medications 3 weeks prior to admission. Currently he denies any shaking. He denies any aches or pains. He has been resumed back on his Abilify and Lexapro. Ativan is ordered but he has not required any so far. Allergies/Medications Allergies: Coded Allergies: NO KNOWN ALLERGIES (05/07/11) Home Med list Aripiprazole (Abilify) 5 MG TABLET 1 TAB PO DAILY DEPRESSION Escitalopram Oxalate 10 MG TABLET 1 TAB PO DAILY DEPRESSION [LEMON BALM] LIQUID.SEQ (Reported) Past History Travel History Traveled to [place] past 21 day No Medical History Neurological: NONE EENT: NONE Cardiovascular: NONE Respiratory: NONE Gastrointestinal: NONE Hepatic: NONE Renal: NONE Musculoskeletal: NONE Psychiatric: alcohol dependence, anxiety, depression, opioid dependence, ADHD Endocrine: NONE Blood Disorders: NONE Cancer(s): NONE History of MRSA: No History of VRE: No History of CDIFF: No Isolation History: Standard Surgical History Surgical History: Surgery for pyloric stenosis. Past Family/Social History Family History Relations & Conditions if any MOTHER (Skin cancer). grandmother (diabetes). Psychosocial History Where do you live? Home Who Do You Live With? parent Services at Home: None Primary Language: French ETOH Use: alcoholic Illicit Drug Use: heroin, marijuana Functional Ability ADLs Independent: dressing, eating, toileting, bathing. Ambulation: independent IADLs Independent: housework, telephone, transportation. 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 EENTM: Reports: see HPI. Cardiovascular: Reports: see HPI. Respiratory: Reports: see HPI. GI: Reports: see HPI. Genitourinary: Reports: see HPI. Musculoskeletal: Reports: see HPI. Skin: Reports: see HPI. Neurological/Psychological: Reports: see HPI. Exam & Diagnostic Data Last 24 Hrs of Vital Signs/I&O Vital Signs Date Time Temp Pulse Resp B/P Pulse O2 O2 Flow FiO2 Ox Delivery Rate 04/25 1514 84 141/65 04/25 1332 84 141/65 04/25 0823 96.5 73 131/85 04/25 0816 96.5 73 131/85 04/25 0604 60 18 133/60 04/24 1645 97.3 78 20 111/55 98 Room Air Intake & Output 04/25 1600 04/25 0800 04/25 0000 Intake Total Output Total Balance Patient 199 lb Weight Physical Exam General Appearance Alert, Oriented X3, Cooperative, No Acute Distress Skin No Rashes HEENT PERRLA Neck Supple Cardiovascular Regular Rate, Normal S1, Normal S2 Lungs Clear to Auscultation Abdomen Normal Bowel Sounds, Soft, No Tenderness Neurological Cranial Nerves II through XII: intact Extremities No Edema Last 24 Hrs of Labs/Conor: Laboratory Tests 04/24 04/24 04/24 1431 0215 0215 Chemistry Sodium (137 - 145 mmol/L) 151 H Potassium (3.5 - 5.1 mmol/L) 3.5 Chloride (98 - 107 mmol/L) 108 H Carbon Dioxide (22 - 30 mmol/L) 27 Anion Gap (5 - 16) 16 BUN (9 - 20 mg/dL) 8 L Creatinine (0.7 - 1.2 mg/dL) 0.8 Estimated GFR (>60 ml/min) > 60 BUN/Creatinine Ratio (7 - 25 %) 10.0 Glucose (65 - 99 mg/dL) 98 Hemoglobin A1c Pending Calcium (8.4 - 10.2 mg/dL) 9.3 Total Bilirubin (0.2 - 1.3 mg/dL) 0.3 AST (17 - 59 U/L) 23 ALT (21 - 72 U/L) 25 Alkaline Phosphatase (< 127 U/L) 63 Total Protein (6.3 - 8.2 g/dL) 7.1 Albumin (3.5 - 5.0 g/dL) 4.7 Globulin (1.9 - 4.2 gm/dL) 2.4 Albumin/Globulin Ratio (1.1 - 2.2 %) 2.0 Triglycerides (<150 mg/dL) 86 Cholesterol (< 200 MG/DL) 121 LDL Cholesterol, Calc (65 - 129 mg/dL) 55 L HDL Cholesterol (40 - 60 mg/dL) 49 Cholesterol/HDL Ratio (0.00 - 4.88 %) 2 TSH (0.270 - 4.200 uIU/mL) 2.230 Hematology CBC w Diff NO MAN DIFF REQ WBC (4.8 - 10.8 /CUMM) 7.1 RBC (4.70 - 6.10 /CUMM) 5.08 Hgb (14.0 - 18.0 G/DL) 15.6 Hct (42 - 52 %) 46.0 MCV (80.0 - 94.0 FL) 90.7 MCH (27.0 - 31.0 PG) 30.7 RDW (11.5 - 14.5 %) 12.6 Plt Count (130 - 400 /CUMM) 193 MPV (7.4 - 10.4 FL) 8.8 Gran % (42.2 - 75.2 %) 49.6 Lymphocytes % (20.5 - 51.1 %) 41.9 Monocytes % (1.7 - 9.3 %) 6.0 Eosinophils % (0 - 5 %) 2.1 Basophils % (0.0 - 2.0 %) 0.4 Absolute Granulocytes (1.4 - 6.5 /CUMM) 3.5 Absolute Lymphocytes (1.2 - 3.4 /CUMM) 3.0 Absolute Monocytes (0.10 - 0.60 /CUMM) 0.4 Absolute Eosinophils (0.0 - 0.7 /CUMM) 0.2 Absolute Basophils (0.0 - 0.2 /CUMM) 0 PUBS MCHC (33.0 - 37.0 G/DL) 33.8 Toxicology Urine Opiates Screen (>2000 NG/ML) < 100.00 Methadone Screen (>300 NG/ML) < 40 Barbiturate Screen (>200 NG/ML) < 60 Ur Phencyclidine Scrn (>25 NG/ML) < 6.00 Amphetamines Screen (>1000 NG/ML) < 100 U Benzodiazepines Scrn (>200 NG/ML) < 85 Urine Cocaine Screen (>300 NG/ML) < 50 Urine Cannabis Screen (>50 NG/ML) 50.00 Serum Alcohol (<10 MG/DL) 276.0 Assessment/Plan Assessment: 26-year-old male with history significant for anxiety, depression, alcohol dependence who is admitted with acute alcohol intoxication as well as expressing suicidal ideation. Patient has been resumed on his Abilify and Lexapro. Ativan is ordered but he has not required any. I will leave the psych management up to psych. Patient does not take any other medications. His sodium was high on admission therefore I will recheck it in the morning. As Ranked By This Provider Problem List: 1. Alcohol intoxication 2. Suicidal ideation 3. Depression Miscellaneous Miscellaneous Documentation Attending Case Discussed With: Elsa Delgado MD Primary Care Physician: SWAPNIL WEEKS APRN Patient sees these Specialists None Level of Patient Care: ED Garcia
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
--- NOTE | 2016-04-25 21:49 | NUR ---
PT IS CALM, COOPERATIVE WITH STAFF AND PEERS, AND COMPLIANT WITH UNIT RULES. PT HAS BEEN IN [place], THOUGH MINIMAL SOCIALIZATION WITH PEERS. PT MOOD IS STABLE, AFFECT IS FULL EUTHYMIC TO FULL RANGE, COMMUNICATION IS NORMAL, AND APPETITE IS NORMAL. PT DENIES SI AT THIS TIME.
[2016-04-26] VITALS (9 sets, daily range): BP systolic 137–193; BP diastolic 71–76
--- NOTE | 2016-04-26 08:43 | SOCIAL WORKER TX PLAN PSYCH ---
Treatment Plan - Please Document: - Evidence that there is ongoing collaboration between - the patient and the interdisciplinary team, - including the patient's active participation and - responsibility for engaging in the treatment regimen, - and that the treatment plan is individualized and - relevant to the patient's conditions. - Treatment plan should reflect documentation indicating - that all active therapeutic efforts are included. Strengths/Capabilities: likes to read, wants another job Physical Limitations (Interventions): none reported Patient Identified Trmt Goals: "I need to get my life together" Discharge Plan: [facility] and return home with family Problem/Goals #1 Problem #1: suicidal ideation Goal (Short Term): Patient will identify triggers to thought of suicide Goal (Jinrikisha Driver): Patient will be able to verbalize that he can be safe and have a safety plan Interventions: Patient will be offered medication management with the DAYLIGHT DRILLER, groups on symptom management, coping skills, focus group, relaxation group, art therapy, goals group. Dashboard Developer will help patient reframe negative thinking and negative self talk. Encourage patient to stay focused on the present. Dashboard Developer will coordinate with family and plan for discharge. Modalities: group/ individual Problem/Goals #2 Problem #2: alcohol dependence/abuse Goal (Short Term): patient will be able to discuss pros and cons to use Goal (Chcf): patient will establish a relpase prevention plan Interventions: patient will be offered groups on relapse prevention, symptom management, coping skills and AA on unit. grab jack worker will explore pros and cons to using and discuss how this impacts life goals. DSM5/PS Stressors/Medical Prob Diagnosis' (DSM 5, Stressors, Medical): 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 Treatment Team - Responsibilities of members of the treatment team include: - Medication Management- MD or DAYLIGHT DRILLER - Medication Administration and Monitoring- Nurse - Group Therapy- Occupational Therapist - 1:1 Therapy,Disch Planning,family involvement-Dashboard Developer
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
--- NOTE | 2016-04-26 14:16 | CP SOUTH PROGRESS NOTE PSYCH ---
Psych (Inpt) Progress Note Progress Note Include the following elements, when applicable: Involvement in the active treatment of the patient with behavioral observations of the patient and the patient's response to the treatment. Review of the ongoing treatment process in the context of the treatment plan. Indication of how multi-disciplinary staff members are carrying out the treatment plan. Plans for future interventions and recommendations for revision of the treatment plan. Liaison with other physicians/providers. Progress Note: Medication list reviewed. Case and treatment plan discussed in team meeting. Staff reports that the patient was pre-syncopal with phlebotomy this morning. Had a Rapid Response. Appeared white and pale. This likely was a vasovagal episode based on the history. We are trying to arrange a family meeting. Patient reportedly did well on Neurontin and naltrexone after returning from a rehab in [place]. He subsequently stopped these medications. Patient was up and active last evening. Was anxious on evening shift. Said he did not sleep well last evening. Had trouble getting up this morning. Described as impulsive. Patient seen at 11:45 a.m. Ambulatory WM dressed in blue paper scrubs, sitting in a chair in [facility]. Denies injury from episode this morning but feels slightly weak. I advised the patient to get up slowly and to push fluids. Feels wonderful. Has no complaints. Affect is calm, blunted, euthymic and superficial. Mood is good. Reports he is working on trying to get out of here. Reports he guesses he could work on a couple of things, i.e. not drinking. States that if he doesn't drink, he is fine. Reports that he never wants to hurt himself when he is sober. Sad 0/10. Anxiety probably 2/10. Denies feeling hopeless, helpless, worthless or guilty. Denies active and passive SI, HI, AH, VH and PI. Sleep: "horrible, these beds are atrocious." States his room was hot and he heard a ticking noise. Describes appetite and energy as fine. When asked, states he has never been formally diagnosed with bipolar disorder. Reports that past Neurontin helped with anxiety. Tolerating Abilify and Lexapro well thus far, without complaint. Anticipates family meeting with mother at 1 pm and possible discharge tomorrow with referral to [facility]. IMPRESSION: Condition improving. Continue present treatment plan. Await outcome of family meeting.
--- NOTE | 2016-04-26 15:41 | SOCIAL WORKER PROG NOTE PSYCH ---
Social Work Progress Note Progress Note Herbert's Mom called and offered to come in without Herbert's Dad for a family meeting this afternoon. She has been upset and crying all morning over everything going on. Stated she really wants to see him and give him some clothes. Meeting was held at 1 pm with Herbert and his Mom. His Mother expressed in detail how much she loves him and how much the family cares about him. She went on to talk about all the things that have been happening due to his issues that have been tearing the family apart emotionally. She was very tearful throughout the meeting. She is very emotional towards her son and they seem to have a very co- dependent relationship. She states that she is more of a best friend to him, than his Mom. The boundaries seem poor. The family wants him home, but also wants to know that he can be safe. She is scared to to find him . Herbert was the total opposite at the meeting and exhibited very little emotion. He shared that he has had a difficult time leaving the house and pursuing his goals, because of fear of failure. He stated that he "always fucks things up". He doesn't feel that going back to rehab is the answer for him at this point and that his life is here and he needs to start working on it. He is extremely hard on himself and has very little to say to himself that is positive. He doesn't know how to get his life in order. He is open to going to [facility]. We talked about how this could be a huge support for him and that he needs to be in treatment while in the community because that is where things fall apart. He can't stay in rehab or in a hospital the rest of his life. Mom feels that he doesn't know how to handle his emotions. She has had the same experience in her life. She feels that Herbert has alot of mood lability and she is concerned that he may be bi -polar. Mom has been giving him herbal supplements. I talked about the importance of making sure things don't interact with medications and the importance of getting a doctor to approve these things. Recommended that a psychiatrist or CONSULTING SOFTWARE ENGINEER handle his medications. He has some issues around med compliance outside of a controlled setting. We discussed the idea of talking to Silke Colvin APRN tomorrow about a possible mood stabilizer. Mom doesn't think he will take anything that will cause him to feel drowsy. Discussed the importance of AA involvement and getting a sponsor. I also recommended that the family remove alcohol from the home, as this is a trigger for someone leobardo in recovery. I'm not sure if the family is completely committed to that idea. Also encouraged Al-Anon for Mom and Dad as a source of support. Mom has been to meetings years ago, but hasn't gone back.
--- NOTE | 2016-04-26 21:52 | NUR ---
PT IS VISIBLE IN UNIT, SOCIAL WITH PEERS AND STAFF. HAD VISIT FROM FAMILY THROUGHOUT THE EVENING. ATTENDED WRAP UP MEETING. NO COMPLAINTS OR SI REPORTED. PT HAS A STABLE MOOD AND FULL RANGE AFFECT.
[2016-04-27 07:47] VITALS: BP 151/88
[2016-04-27 08:26] VITALS: BP 151/88
--- NOTE | 2016-04-27 10:13 | CP SOUTH PROGRESS NOTE PSYCH ---
Psych (Inpt) Progress Note Progress Note Include the following elements, when applicable: Involvement in the active treatment of the patient with behavioral observations of the patient and the patient's response to the treatment. Review of the ongoing treatment process in the context of the treatment plan. Indication of how multi-disciplinary staff members are carrying out the treatment plan. Plans for future interventions and recommendations for revision of the treatment plan. Liaison with other physicians/providers. Progress Note: [I discussed this patient's progress to date, current mental status, treatment process in the context of the treatment plan, and discharge planning with staff/ team in the daily morning inpatient team meeting. I also met with the patient myself in individual session.] SUBJECTIVE: "I'm feeling good." OBJECTIVE: Current Medications Sig/Dane Start time Last Medication Dose Route Stop Time Status Admin Aripiprazole 5 MG DAILY 04/25 1000 AC 04/27 PO 0947 Escitalopram Oxalate 10 MG DAILY 04/25 1000 AC 04/27 PO 0947 Folic Acid 1 MG 04/26 0800 AC 04/27 PO 0946 Gabapentin 300 MG Q2 HRS NEEDED PRN 04/24 2230 AC 04/26 PO 1448 Lorazepam 2 MG Q1 NEEDED PRN 04/24 2245 AC PO Lorazepam 1 MG Q1 NEEDED PRN 04/24 2230 AC PO Multivitamins 1 TAB 04/26 0800 AC 04/27 PO 0946 Nicotine 2 MG Q1H PRN 04/24 2300 AC PO Nicotine 21 MG DAILY 04/24 2300 AC 04/27 TOP 0947 Thiamine HCl 100 MG 04/26 0800 AC 04/27 PO 0947 Trazodone HCl 50 MG AT BEDTIME NEED.. 04/24 2245 AC PO Vital Signs Date Time Temp Pulse Resp B/P Pulse O2 O2 Flow FiO2 Ox Delivery Rate 04/27 825 96.4 76 151/88 04/27 0747 96.4 76 151/88 04/26 2028 97.6 83 154/72 04/26 2023 97.0 83 154/72 04/26 1559 71 138/76 04/26 1546 71 138/76 04/26 1225 75 143/76 04/26 1221 75 193/76 04/26 1157 75 143/76 ASSESSMENT: Chart, progress notes, labs, and medication list reviewed. On encounter, patient presented A&Ox3. Speech was normal in rate, tone and volume. Affect was calm and full-range. Mood was euthymic. Eye contact was appropriate. He had no complaints. Reported anxiety of 3/10 (10 being the worst) and depression of 0/10 (10 being the worst). He denied feeling hopeless, helpless, worthless, and guilty. Reported improved sleep, and good appetite. He denied passive and active suicidal ideation, plans and intent. He denied homicidal ideation. Thought process was linear and goal directed. Thought content was appropriate. He denied auditory and visual hallucinations. There was no evidence of paranoia or rayne delusions. Patient denied urges and craving to use alcohol. He appeared motivated to abstain from alcohol use post-discharge and verbalized motivation to attend AA/ NA meeting for increased recovery support. Discussed option of retrialing Naltrexone for alcohol cravings, as he had expressed being on this in the past with good effect. Patient declined trial at this time, as he reported an absence of cravings to use alcohol. Patient reviewed with this report writer the outcome of his family meeting yesterday with his mother. He reported that his mother described him as having psychiatric symptoms consistent with Bipolar disorder (i.e. behavioral impulsivity and mood swings). Patient identified these reports as true, and appeared willing to discuss mood stabilizing agents to help target these symptoms. Patient was adverse to trials of [place], Tegretol, or Depakote, due to a phobia of needles, and reported having a syncopal episode yesterday morning following bloodwork. Patient reported he would not be willing to adhere to necessary serum monitoring for this reason. Discussed option of increasing Abilify to 10mg daily for further mood stabilization, as he reported in the past Abilify had been effective on mood symptoms. Patient reported tolerating medications well, and denied untoward medication effects. Will defer increase in Abilify to IOP, given recently restarting at 5mg daily x 2 days ago, and discharge tomorow morning. Concern that increasing Abilify too quickly could result in SE such as akathesia , and may risk patient discontinuing medication, as he had initially been reluctant to restart this medication. Discussed at length the importance of not taking herbal supplements and psychotropics together, due to potential risks and SEs. Patient verbalized understanding of education and was agreeable to continue taking prescribed psychotropics and cease use of herbal supplements. PLAN: 1. Continue current medications. 2. Continue monitoring the patient on unit for safety and mood. 3. Likely discharge tomorrow, with IOP f/u.
[2016-04-27 12:40] VITALS: BP 144/83
--- NOTE | 2016-04-27 14:26 | NUR ---
Pt was visible in the milieu. He has been more social today, interacting with his peers and staff alike. Pt has been actively participating in groups, and has been cooperative with staff. When asked pt denies having thoughts of hurting himself.
--- NOTE | 2016-04-27 15:52 | SOCIAL WORKER PROG NOTE PSYCH ---
Social Work Progress Note Progress Note Herbert's Mother called this morning and shared that they had a nice family visit with Herbert last night for a few hours. She stated that Herbert and them are working on a contract for him to live at home and he is to come up with consequences for not completing expectations. Mom believes Herbert is making some positive statements, which helps her feel hopeful. She disclosed that her and her got rid of the liquor in the house last night. I told her that I thought that was a good decision and one that would help her son be more successful. Called [facility] and scheduled an intake for tomorrow at 9:30am. Spoke with Herbert about his visit with family last night. He said it was nice. Brought up the contract that he is working on. He said he should have had more work done on it today, but he feels he needs their input to complete it. We talked about making a commitment to his goals and to get up each morning with an intention for the day. He said that he will be working on getting up at 6am every day. He has alot of goals around working, which is great but reminded him that his first goal is his sobriety as without that he won't have a job. Herbert continues to have alot of self defeating thoughts/ negative thoughts. Encouraged him to keep his head where his feet are and to focus on today and what he can do today to make positive choices. He called his Mom to inform her of the plan for discharge tomorrow morning. He will have to wait an hour or so after IOP intake for him because his Mom has physical therapy. Called and left a clinical update for insurance.
[2016-04-27 16:17] VITALS: BP 149/69
[2016-04-27 19:44] VITALS: BP 169/74
[2016-04-27 20:06] VITALS: BP 169/74
--- NOTE | 2016-04-27 23:25 | NUR ---
EVENING NOTE- POSITIVE AND LAUGHING AROUND ON THE UNIT. INTERACTING WITH PEERS/STAFF. COOPERATIVE AND COMPLIANT. ATTENDED WRAP UP. VS ARE STABLE. NO COMPLAINTS.
--- NOTE | 2016-04-28 04:32 | NUR ---
SLEPT WELL WITH NO COMPLAINTS.
[2016-04-28] MEDS ORDERED: LEXAPRO10 M1 PO (07:33)
[2016-04-28] MEDS ORDERED: NICOTINE PATCH1 EAC3 TOP (07:33)
[2016-04-28] MEDS ORDERED: ABILIFY5 M1 PO (07:33)
[2016-04-28] MEDS ORDERED: ONE DAILY MULT1 EAC2 PO (07:33)
[2016-04-28 07:53] VITALS: BP 150/59
--- NOTE | 2016-04-28 08:03 | DISCHARGE SUMMARY REPORT-PSYCH ---
Visit Information Visit Dates/Diagnosis' Admission Date: 04/24/16 Discharge Date: 04/28/16 Reason for Admission: Suicidal ideation in the context of alcohol intoxication Psy Discharge Primary Diag: MDD, recurrent, severe Psy Discharge Secondary Diag: Alcohol use disorder, severe; Opioid use disorder, in remission since 01/2016; Cocaine use disorder, in remission since 01/2016; Cannabis use disorder, in remission since 01/2016; R/O Unspecified Bipolar Disorder Hospital Course Significant Lab Findings: Lab BUN 8 mg/dL L 04/24/165 BUN 14 mg/dL 04/26/16 0700 Chloride 108 mmol/L H 04/24/165 Chloride 103 mmol/L 04/26/16 0700 Sodium 151 mmol/L H 04/24/16 0215 Sodium 139 mmol/L 04/26/16 0700 Serum Alcohol 276.0 MG/DL 04/24/165 Course Complications: None. Consultations: Patient was seen for admission history and physical by DR. Elsa Delgado. Please see her note for additional information. Allergies: Coded Allergies: NO KNOWN ALLERGIES (05/07/11) Hospital Course/TX Response: The patient was monitored on unit for safety, mood disorder, and alcohol withdrawal. During hospital course, the patient did not exhibit subjective or objective signs of alcohol withdrawal, or utilize prn Ativan per [facility] protocol. The patient denied trials of mood stabilizers such as [place], Tegretol, and Depakote due to the necessity of serum drug monitoring secondary to his fear of needles. He was restarted on Abilify 5mg every morning for mood stabilization, and Lexapro 10mg every morning for anxiety/depression, which he had stopped months prior to [facility] hospitalization. Patient was additionally started on Gabapentin 300mg Q2 hours prn for anxiety which he reported had good effect, however he underutilized. Gabapentin was changed on discharge to 300mg [id number] prn for anxiety. He reported tolerating all medications well and denied untoward medication effects. During the hospital course, the patient's mood and affect improved. He reported he never had been suicidal prior to or during [facility] hospitalization, and denied active and passive suicidal ideation on discharge. A family meeting was held with the patient, his mother, and Sydney aBin LCSW. The patient's treatment progress, level of safety, and discharge planning were reviewed. The patient's mother and patient were in favor of the patient following-up with Dual IOP level of care post-discharge, and the patient was agreeable to stop taking herbal supplements and to continue taking prescribed medications post-discharge. This conventional mortgage underwriter recommended that during the course of IOP he discuss with his prescriber an increase in Abilify for further mood stabilization, as he reported doing well on this medication up to 10mg daily. Patient verbalized understanding and was agreeable to recommendation. On the date of discharge, 04/28/16, the patient presented alert and oriented to person, place, time and situation. Speech was normal in rate, tone and volume. Eye contact was appropriate. Affect was calm and full-range, non-labile. He reported his mood as "a lot better." He reported anxiety of 0/10 (10 being the worst) and depression of 0/10 (10 being the worst). He appeared goal-oriented to abstain from all substances and to attend Dual IOP and AA/NA meetings for support his sobriety. He denied active and passive suicidal ideation, plans and intent. He denied homicidal ideation. He reported protective factors of "my parents" and "my sisters." He stated and also believed he will not harm himself or others. He denied urges and cravings to use alcohol or other substances. He denied feeling hopeless, helpless, worthless, or guilty. He denied auditory and visual hallucinations. There was no evidence of paranoia or rayne delusions. Thought process was organized and linear. Thought content was appropriate. Cognition was grossly intact. He reported tolerating all medications well and denied untoward medication effects. He verbalized understanding of the risks/SEs of combining prescribed medications with herbal supplements, and verbalized that he will not continue herbal supplements while taking prescribed medications post -discharge. He reported feeling safe and ready for discharge. Discharge HBIPS - Tobacco Use Treatment Offered Post DC Medications Offered: Script Given-See Med List Post DC Tobacco Treatment Plan: [facility] Program Appt Date: 05/10/16 Program Appt Time: 1600 - EtOH/Drug Use D/O Treatment Offered Post DC Medications Offered: Ref Med EtOH/Drug Use D/O Post DC EtOH/SubAbuse TX Plan: [facility] SubAbuse/Dual IOP Program Appt Date: 01/27/17 Program Appt Time: 0930 Metabolic Screening - Screen if on a Neuroleptic Medication - Metabolic screening should include: - Blood Pressure, BMI, Glucose or Hgb A1c, & a - Lipid profile from within the past 365 days. Metabolic Screening () Not Applicable, patient not on a neuroleptic. OR ([X]) Patient on a neuroleptic(s) . Enter below results for Glucose or Hemoglobin A1C, and lipid panel if obtained during the last 365 days. BMI: 25.600 Blood Pressure: 150/59 Laboratory Results (If applicable): Lab Cholesterol 121 MG/DL 04/24/16214 Cholesterol/HDL Ratio 2 % 04/24/16214 Glucose 98 mg/dL 04/24/16214 HDL Cholesterol 49 mg/dL 04/24/16214 LDL Cholesterol, Calc 55 mg/dL L 04/24/16214 Triglycerides 86 mg/dL 04/24/16214 Discharge Instructions General Discharge Information Discharge Medications: Discharge Medications- (Dose, route, freq, indication): HOME MEDICATION LIST START taking these NEW Home Medications: Nicotine (Nicotine Dose: On the skin, DAILY for Qty: 14 Printed Patch) 21 MG/24 HOUR 21 Milligram smoking cessation Refills: 0 PATCH.TD24 Apply 1 patch topically every morning and remove before bedtime. Escitalopram Oxalate Dose: ORAL, DAILY for Qty: 14 Printed (Lexapro) 10 MG 10 Milligram depression/anxiety Refills: 0 TABLET Take 1 tablet by mouth every morning. Aripiprazole Dose: ORAL, DAILY for mood Qty: 14 Printed (Abilify) 5 MG 5 Milligram stabilization Refills: 0 TABLET Take 1 tablet by mouth every morning. Multivitamin (One Dose: ORAL, DAILY @8 AM for Qty: 14 Printed Daily Multivitamin) 1 Tablet VITAMIN SUPPORT Refills: 0 1 EACH TABLET Take 1 tablet by mouth every morning. Gabapentin Dose: ORAL, EVERY 8 HOURS Qty: 42 Printed (Gabapentin) 300 MG 300 Milligram NEEDED as needed for Refills: 0 CAPSULE ANXIETY Take 1 capsule (300mg) by mouth every 8 hours as needed for anxiety. Discharge prescriptions were printed, reviewe with the patient and provided to the patient on the date of discharge, 04/28/16. STOP taking these DISCONTINUED Home Medications: Burke's Wort (Laverne's Dose: ORAL, DAILY for DEPRESSION Wort) 150 MG CAPSULE 2 Capsule Reason Stopped: Medication Unavailable [LEMON BALM] LIQUID.SEQ Dose: , Reason Stopped: Per Doctor Decision Multiple Neuroleptics: ([X]) Not Applicable OR Document below three failed attempts at monotherapy, or a plan to taper to monotherapy, or augmentation of Clozapine. () Patient's Diet: Regular. Patient's Activity: No restrictions. DC Disposition: Patient to return to home and family. Recommendations: Patient was advised to please take medications. He was advised to stop taking herbal supplements and educated on the risks/SE of combined use of herbal supplements with prescribed medications. He was advised to abstain from all substances, and advised to attend AA/NA meetings and to obtain a sponsor for support in sobriety. He was advised to follow-up with [facility] intake and treatment. He was advised that in the event of an emergency to call [phone] to nearest emergency department. Patient verbalized understanding of all instructions. Referred To: [facility] [address] [place] [address] ([phone] Intake scheduled on 04/28/16 at 9:30AM. [facility] [address] [place] [address] (t)[phone] Walk into group on 05/10/16 at 4PM, bring appointment card. Copies To: [facility]; [facility]
--- NOTE | 2016-04-28 08:04 | NUR ---
WILL BE DISCHARGED TODAY TO [facility] WITH SCHEDULED INTAKE AT [facility]. MOOD IS STABLE, FULL RANGE OF AFFECT. DENIES THOUGHTS OF SELF HARM WHEN ASKED. EDUCATED ON SUICIDE PREVENTION AND ALCOHOL ABUSE. ENCOURAGED TO ATTEND AA MTGS IN COMMUNITY.
--- NOTE | 2016-04-28 08:16 | CP SOUTH PROGRESS NOTE PSYCH ---
Psych (Inpt) Progress Note Progress Note Include the following elements, when applicable: Involvement in the active treatment of the patient with behavioral observations of the patient and the patient's response to the treatment. Review of the ongoing treatment process in the context of the treatment plan. Indication of how multi-disciplinary staff members are carrying out the treatment plan. Plans for future interventions and recommendations for revision of the treatment plan. Liaison with other physicians/providers. Progress Note: [I discussed this patient's progress to date, current mental status, treatment process in the context of the treatment plan, and discharge planning with staff/ team in the daily morning inpatient team meeting. I also met with the patient myself in individual session.] SUBJECTIVE: "I feel a lot better, I know what I need to do going forward." OBJECTIVE: Current Medications Sig/Dane Start time Last Medication Dose Route Stop Time Status Admin Aripiprazole 5 MG DAILY 04/25 1000 AC 04/28 PO 0816 Escitalopram Oxalate 10 MG DAILY 04/25 1000 AC 04/28 PO 0816 Folic Acid 1 MG 04/26 0800 DC 04/27 PO 0946 Gabapentin 300 MG Q8P PRN 04/28 0830 AC PO Gabapentin 300 MG Q2 HRS NEEDED PRN 04/24 2230 DC 04/26 PO 1448 Lorazepam 2 MG Q1 NEEDED PRN 04/24 2245 DC PO Lorazepam 1 MG Q1 NEEDED PRN 04/24 2230 DC PO Multivitamins 1 TAB 04/26 0800 AC 04/28 PO 0816 Nicotine 2 MG Q1H PRN 04/24 2300 AC PO Nicotine 21 MG DAILY 04/24 2300 AC 04/27 TOP 0947 Thiamine HCl 100 MG 04/26 0800 DC 04/27 PO 0947 Trazodone HCl 50 MG AT BEDTIME NEED.. 04/24 2245 AC PO Vital Signs Date Time Temp Pulse Resp B/P Pulse O2 O2 Flow FiO2 Ox Delivery Rate 04/28 752 96.4 67 150/59 04/27 2005 96.7 72 169/74 04/27 1943 96.7 72 169/74 04/27 1617 77 149/69 04/27 1617 77 149/69 04/27 1240 70 144/83 04/27 1240 70 144/83 04/27 825 96.4 76 151/88 ASSESSMENT: Met with the patient today, on the date of discharge. He presented alert and oriented to person, place, time and situation. Speech was normal in rate, tone and volume. Eye contact was appropriate. Affect was calm and full-range, non- labile. He reported his mood as "a lot better." He reported anxiety of 0/10 (10 being the worst) and depression of 0/10 (10 being the worst). He appeared goal- oriented to abstain from all substances and to attend Dual IOP and AA/NA meetings for support his sobriety. He denied active and passive suicidal ideation, plans and intent. He denied homicidal ideation. He reported protective factors of "my parents" and "my sisters." He stated and also believed he will not harm himself or others. He denied urges and cravings to use alcohol or other substances. He denied feeling hopeless, helpless, worthless, or guilty. He denied auditory and visual hallucinations. There was no evidence of paranoia or rayne delusions. Thought process was organized and linear. Thought content was appropriate. Cognition was grossly intact. He reported tolerating all medications well and denied untoward medication effects. He verbalized understanding of the risks/SEs of combining prescribed medications with herbal supplements, and verbalized that he will not continue herbal supplements while taking prescribed medications post-discharge. He reported feeling safe and ready for discharge. PLAN: 1. Discharge today into the care of family. 2. Follow-up with Dual IOP intake today, at 9:30AM. 3. Printed prescriptions were provided to patient of all discharge medications. 4. F/u with [facility] on 05/10/16 at 4PM for assistance with smoking cessation. 5. Abstain from all substances. Advised to attend AA/NA meetings and to obtain a sponsor for support in sobriety. 6. In the event of an emergency, call [phone]/go to nearest emergency department. Patient verbalized understanding of all instruction.
[2016-04-28] MEDS ORDERED: NEURONTIN300 M1 PO (08:24)
[2016-04-28] MEDS ORDERED: GABAPENTIN300 M2 PO (08:33)
--- NOTE | 2016-04-28 09:03 | SOCIAL WORKER PROG NOTE PSYCH ---
Social Work Progress Note Progress Note Met with Herbert and Silke Colvin APRN to discuss discharge for this morning. Herbert states he doing well. Told him about a program called [facility] that provides in home services for the family and patient. Someone would go out to the home weekly or bi-weekly to do therapy/ case management. Insurance said they do this for a year and it's covered by insurance. Herbert seemed to like the idea and asked for me to relay the information to his Mom. Asked what his plans where after his intake at [facility] today? He said he will wait for Mom to pick him up and then he may go with his family to see a movie today. I asked about going to AA? He said he talked to the gentleman that ran the AA meeting last night and got his number. He may go to a meeting with him harvey. Stressed the importance of making his sobriety a priority. Also talked about how it's important to stay on his meds and stay in treatment despite the costs. Family would rather pay for his treatment than his . He said he understands. Called Mrs. Bynum and talked to her about the [facility] program. Gave her the phone number and asked what she thought? She said it sounded good, she was just concerned about the times they would come to the house due to her and her being busy with work. Encouraged her to look into it and stated I could have [facility] help with the referral process if that's needed. She said ok. Informed [facility] staff of the program to help follow up. Wished Herbert well.
== END 2016-04-28 09:25 | DRG 881 ==
LOC: ERH 01:12 → ENPENDDIS 19:54 → ERHI 19:54 → CP SOUTH 19:54
PROVIDERS: Pediatrics; ADMIT Psychiatry & Neurology Psychiatry
DX: F32.9 Major depressive disorder, single episode, unspecified (principal); F19.20 Other psychoactive substance dependence, uncomplicated
CPT/HCPCS: 36415; 73130-RT; 80307; 82436; 96372; G0480; J1200; J1630; J3490

== ENCOUNTER 2016-05-17 10:30 | Emergency (ER) | payer OTHER ==
[~2016-05-17] VITALS: Ht 188 cm; Wt 91.6 kg
[~2016-05-17 10:30] MED LIST changes: +GABAPENTIN300 M2 PO; +LEMON BALM; +LEXAPRO10 M1 PO; +NEURONTIN300 M1 PO; +NICOTINE PATCH1 EAC3 TOP; +ONE DAILY MULT1 EAC2 PO; +ST. JOHN'S WOR150 M1 PO
[2016-05-17 10:50] VITALS: BP 111/73
--- NOTE | 2016-05-17 11:25 | ED GI/GU/ABDOMINAL COMPLAINT ---
History of Present Illness General Chief Complaint: Abdominal Pain/Flank Pain Stated Complaint: ABD PAIN SINCE 05/14 Source: patient Exam Limitations: no limitations Vital Signs & Intake/Output Vital Signs & Intake/Output Vital Signs Date Time Temp Pulse Resp B/P Pulse O2 O2 Flow FiO2 Ox Delivery Rate 05/17 1050 99.3 89 20 111/73 99 Room Air Allergies Coded Allergies: NO KNOWN ALLERGIES (05/07/11) Reconcile Medications Aripiprazole (Abilify) 5 MG TABLET 5 MG PO DAILY mood stabilization Take 1 tablet by mouth every morning. Escitalopram Oxalate (Lexapro) 10 MG TABLET 10 MG PO DAILY depression/anxiety Take 1 tablet by mouth every morning. Hyoscyamine (Levsin) 0.125 MG TABLET 1 TAB PO Q4 PRN ABDOMINAL SPASMS Triage Note: PT C/O LOWER ABDOMINAL PAIN THAT COMES AND GOES SINCE SUNDAY. PT STATES LOOSE STOOL, BAD GAS BUT NO N/V. PT ALSO STATES HE WAKES UP WITH BAD H/A'S AND TAKES EXCEDERIN THEN THEY GO AWAY. Triage Nurses Notes Reviewed? yes Onset: Gradual Duration: day(s): (4) Timing: remote history Quality/Severity: cramping Severity Numbers: 6 Location: left lower quadrant, right lower quadrant Radiation: no radiation Activities at Onset: none Prior Abdominal Problems: similar symptoms Past Sexual History: Unobtainable at this time No Modifying Factors: none HPI: Patient is a 26-year-old male presenting to the emergency department with chief complaint of lower abdominal pain of been going on constantly for the past 4 days. Pain is cramping in nature. He also reports that his passing a lot of gas. Positive nausea but no vomiting. He still has been able to drink without difficulty. Denies any urinary frequency urgency or dysuria. No hematuria. Denies any shortness of breath chest pain or palpitations. No sick contacts or recent travel. Denies recent antibiotic use. He does report loose stool 3 days. One episode daily. Denies blood in the stool. Nothing seems to make the symptoms better or worse. He also reports new medications over the past 2 weeks. He is taking Burke's wort and another homeopathic medication. He started about 2 weeks ago, symptoms started about a week and a half after starting any medications. Unsure if it's related. He also reports low-grade fevers. (MARIO ZAVALETA) Past History Travel History Traveled to [place] past 21 day No Medical History Any Pertinent Medical History? see below for history Neurological: NONE EENT: NONE Cardiovascular: NONE Respiratory: NONE Gastrointestinal: NONE Hepatic: NONE Renal: NONE Musculoskeletal: NONE Psychiatric: alcohol dependence, anxiety, depression, opioid dependence, ADHD Endocrine: NONE Blood Disorders: NONE Cancer(s): NONE History of MRSA: No History of VRE: No History of CDIFF: No Surgical History Surgical History: Surgery for pyloric stenosis. Psychosocial History Who do you live with Patient and family Services at Home None What is your primary language Mongolian Tobacco Use: Current Daily Use Daily Tobacco Use Amount/Type: => 5 Cigarettes daily ETOH Use: occasional use Illicit Drug Use: denies illicit drug use Family History Family History, If Any: MOTHER (Skin cancer). grandmother (diabetes). Hx Contributory? No (MARIO ZAVALETA) Review of Systems Review of Systems Constitutional: Reports: fever. Comments Review of systems: See HPI, All other systems negative. Constitutional, no chills or weight loss HEENT: No visual changes no sore throat no congestion Cardiovascular: No chest pain Skin, no jaundice no rashes Respiratory: No dyspnea cough sputum or hemoptysis GI: no vomiting : No dysuria No hematuria Muscle skeletal: no back pain, no neck pain, Neurologic: No numbness no confusion Psych: No stress anxiety or depression,. Heme/endocrine: No bruising no bleeding no polyuria or polydipsia Immunology: No splenectomy or history of AIDS (MARIO ZAVALETA) Physical Exam Physical Exam General Appearance: well developed/nourished, no apparent distress, alert, awake , comfortable Gastrointestinal: normal bowel sounds, soft, tenderness Comments: Well-developed well-nourished person in no acute distress HEENT: Pupils equally round and reactive to light and accommodation. Nose is atraumatic. Neck: Normal inspection Back: Nontender, no CVA tenderness. Cardiovascular: Regular rate and rhythms no murmurs rubs or gallops, normal JVP Respiratory: Chest nontender. No respiratory distress.breath sounds clear to auscultation bilaterally Abdomen: Soft, tender to palpation in the lower quadrants bilaterally minimally, no rebound or guarding, nondistended, no appreciable organomegaly. Normal bowel sounds. No ascites Extremity: No edema Neuro: Alert oriented x3 Skin: No appreciable rash on exposed skin, skin is warm and dry. Psych: Mood and affect is normal, memory and judgment is normal. Core Measures ACS in differential dx? No Severe Sepsis Present: No Septic Shock Present: No (MARIO ZAVALETA) Progress Differential Diagnosis: appendicitis, diverticulitis, gastritis, urethritis, UTI /pyelo, viral syndrome Plan of Care: Orders Procedure Date/time Status URINALYSIS 05/17 112 Complete LIPASE 05/17 112 Complete COMPREHENSIVE METABOLIC PANEL 05/17 1123 Complete CBC WITHOUT DIFFERENTIAL 05/17 1123 Complete AMYLASE 05/17 112 Complete Laboratory Tests 05/17/16 1240: Urinalysis MANY H, Urine Color YEL, Urine Clarity HAZY H, Urine pH 8.0, Ur Specific Matthews 1.020, Urine Protein TRACE H, Urine Ketones NEG, Urine Nitrite NEG, Urine Bilirubin NEG, Urine Urobilinogen 0.2, Ur Leukocyte Esterase NEG, Ur Microscopic SEDIMENT EXAMINED, Urine RBC RARE, Urine WBC RARE, Urine Mucus MOD H, Urine Hemoglobin NEG, Urine Glucose NEG 05/17/16 1137: Anion Gap 13, Estimated GFR > 60, BUN/Creatinine Ratio 14.3, Glucose 88, Calcium 10.1, Total Bilirubin 0.6, AST 19, ALT 32, Alkaline Phosphatase 66, Total Protein 7.3, Albumin 4.6, Globulin 2.7, Albumin/Globulin Ratio 1.7, Amylase < 30 L, Lipase 48, CBC w Diff NO MAN DIFF REQ, RBC 5.30, MCV 89.1, MCH 30.6, RDW 12.5, MPV 8.4, Gran % 79.6 H, Lymphocytes % 9.0 L, Monocytes % 10.8 H, Eosinophils % 0.6, Basophils % 0 L, Absolute Granulocytes 9.4 H, Absolute Lymphocytes 1.1 L, Absolute Monocytes 1.3 H, Absolute Eosinophils 0.1, Absolute Basophils 0, PUBS MCHC 34.3 Initial ED EKG: none Comments: 05/17/2016 11:29:56 AM patient complains of lower abdominal pain, loose stool 3 days. He did recently start new medications. This could be related. Also considering viral process. Patient reports he is eating and drinking well. No need for IV hydration at this point. We will assess a CBC, CMP and urinalysis. Patient does not want anything help with pain at this time. 05/17/2016 1:07:46 PM Burke's wort can cause abdominal discomfort. Blood work essentially unremarkable. Likely viral process along with medication reaction. Patient will be treated symptomatically and told to return for any worsening symptoms or concerns. Patient afebrile here. Given DC appendicitis exclusion form. (MARIO ZAVALETA) Departure Departure Time of Disposition: 1305 Disposition: HOME OR SELF CARE Condition: Stable Clinical Impression Primary Impression: Abdominal pain Qualifiers: Abdominal location: generalized Qualified Code: R10.84 - Generalized abdominal pain Referrals: SWAPNIL WEEKS APRN (PCP/Family) Additional Instructions: Follow-up with YOUR primary care physician call to make an appointment. Increase fluids. Take Levsin as prescribed to help with abdominal discomfort. Return for worsening symptoms or concerns. [facility]. Departure Forms: Customer Survey D/C INS-APPENDICITIS EXCLUSION General Discharge Information Prescriptions: Current Visit Scripts Hyoscyamine (Levsin) 1 TAB PO Q4 PRN ABDOMINAL SPASMS #30 TAB (MARIO ZAVALETA) PA/PRESTIDIGITATOR Co-Sign Statement Statement: ED Attending supervision documentation- [] I saw and evaluated the patient. I have also reviewed all the pertinent lab results and diagnostic results. I agree with the findings and the plan of care as documented in the PA's/PRESTIDIGITATOR's documentation. x I have reviewed the ED Record and agree with the PA's/PRESTIDIGITATOR's documentation. [] Additions or exceptions (if any) to the PAs/PRESTIDIGITATOR's note and plan are summarized below: [] (ERAN FONTAINE,TOBIN)
[2016-05-17 12:07] LABS: ABSOLUTE BASOPHIL COUNT 0 /CUMM (0.0-0.2); ABSOLUTE EOSINOPHIL COUNT 0.1 /CUMM (0.0-0.7); ABSOLUTE GRANULOCYTE CT 9.4 /CUMM (1.4-6.5); ABSOLUTE LYMPH COUNT 1.1 /CUMM (1.2-3.4); ABSOLUTE MONOCYTE COUNT 1.3 /CUMM (0.10-0.60); BASOPHIL % 0 % (0.0-2.0); EOSINOPHIL % 0.6 % (0-5); HEMATOCRIT 47.2 % (42-52); MEAN CORPUSCULAR HGB 30.6 PG (27.0-31.0); MEAN CORPUSCULAR HGB CONC 34.3 G/DL (33.0-37.0); MEAN CORPUSCULAR VOLUME 89.1 FL (80.0-94.0); MEAN PLATELET VOLUME 8.4 FL (7.4-10.4); PLATELET COUNT 198 /CUMM (130-400); RBC DISTRIBUTION WIDTH 12.5 % (11.5-14.5); WHITE BLOOD CELL COUNT 11.8 /CUMM (4.8-10.8)
[2016-05-17 12:13] LABS: GRANULOCYTE % 79.6 % (42.2-75.2)
[2016-05-17] MEDS ORDERED: LEVSIN0.125 M1 PO (13:06)
== END 2016-05-17 13:12 ==
LOC: ERH 10:30
PROVIDERS: Physician Assistant
DX: R10.32 Left lower quadrant pain (principal); R10.31 Right lower quadrant pain
CPT/HCPCS: 81001

== ENCOUNTER 2016-05-28 13:54 | Emergency (ER) | payer OTHER ==
[~2016-05-28] VITALS: Ht 188 cm; Wt 91.6 kg
[~2016-05-28 13:54] MED LIST changes: +LEVSIN0.125 M1 PO
--- NOTE | 2016-05-28 14:01 | ED SKIN/ALLERGY COMPLAINT ---
History of Present Illness General Chief Complaint: Allergy Symptoms Stated Complaint: ALLERGIC REACTION Source: patient, old records Exam Limitations: no limitations Vital Signs & Intake/Output Vital Signs & Intake/Output Vital Signs Date Time Temp Pulse Resp B/P Pulse O2 O2 Flow FiO2 Ox Delivery Rate 05/28 1512 96.5 62 18 131/69 99 Room Air 05/28 1435 98 05/28 1358 96.5 63 20 162/94 98 Room Air Allergies Coded Allergies: NO KNOWN ALLERGIES (05/28/16) Reconcile Medications Prednisone 10 MG TABLET 5 TAB PO DAILY urticaria Triage Note: PT TO ED C/O RASH ?ALLERGIC RXN TO UNKNOWN SUBSTANCES. REPORTS RASH X1 WEEK BUT HAS GOTTEN SEVERE IN THE LAST HOUR. 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 VSS 98% ON RA. GENERALIZED REDNESS AND HIVES TO BODY Triage Nurses Notes Reviewed? yes HPI: Patient is a 26 year old male presents complaining of urticarial rash waxing and waning x 1 week. Rash worse today. Patient reports pruritis was severe prior to arrival. Patient took 50 mg of Benadryl prior to arrival with moderate improvement of pruritis but urticaria continue. Patient had lip parasthesias prior to arrival which resolved after taking the Benadryl. Denies tongue swelling, throat swelling, dyspnea, new medications/foods/skin contacts. (LACY DE SANTIAGO) Past History Travel History Traveled to [place] past 21 day No Medical History Any Pertinent Medical History? see below for history Neurological: NONE EENT: NONE Cardiovascular: NONE Respiratory: NONE Gastrointestinal: NONE Hepatic: NONE Renal: NONE Musculoskeletal: NONE Psychiatric: alcohol dependence, anxiety, depression, opioid dependence, ADHD Endocrine: NONE Blood Disorders: NONE Cancer(s): NONE History of MRSA: No History of VRE: No History of CDIFF: No Surgical History Surgical History: Surgery for pyloric stenosis. Psychosocial History Who do you live with Patient and family Services at Home None What is your primary language Spanish Tobacco Use: Current Daily Use Daily Tobacco Use Amount/Type: => 5 Cigarettes daily ETOH Use: denies use Illicit Drug Use: denies illicit drug use Family History Family History, If Any: MOTHER (Skin cancer). grandmother (diabetes). Hx Contributory? No (LACY DE SANTIAGO) Review of Systems Review of Systems Constitutional: Denies: chills, fever. EENTM: Denies: throat swelling. Respiratory: Denies: cough, short of breath. Cardiovascular: Denies: chest pain. GI: Denies: abdominal pain, nausea, vomiting. Musculoskeletal: Reports: no symptoms. Skin: Reports: rash. Neurological/Psychological: Reports: no symptoms. Hematologic/Endocrine: Reports: no symptoms. Immunologic/Allergic: Reports: no symptoms. (LACY DE SANTIAGO) Physical Exam Physical Exam General Appearance: well developed/nourished, alert, awake Head: atraumatic, normal appearance Eyes: Bilateral: normal appearance, PERRL, EOMI. Ears, Nose, Throat: normal pharynx, normal ENT inspection, hearing grossly normal, no tongue swelling, pharyngeal or uvula edema Neck: normal inspection, supple, full range of motion, no stridor Respiratory: normal breath sounds, no respiratory distress, lungs clear Cardiovascular: regular rate/rhythm Back: normal inspection, normal range of motion Extremities: diffuse urticaria to bilateral upper and lower extremities Neurologic/Psych: no motor/sensory deficits, awake, alert, oriented x 3, normal gait, normal mood/affect Skin: diffuse urticaria (LACY DE SANTIAGO) Progress Differential Diagnosis: allergic reaction, anaphylaxis, asthma, contact dermatitis, drug reaction, urticaria Plan of Care: Current Medications Sig/Dane Start time Last Medication Dose Stop Time Status Admin Diphenhydramine HCl 25 MG ONCE ONE 05/28 1415 UNVr (Benadryl) 05/28 141 Famotidine 20 MG ONCE ONE 05/28 1415 UNVr (Pepcid) 05/28 141 Methylprednisolone 60 MG ONCE ONE 05/28 1415 UNVr (Solu Medrol) 05/28 1416 1510: Urticaria significantly improved, continues with mild urticaria. No signs of anaphylaxis. Appears stable for discharge, will provide information for content production specialist follow up. Encourage primary care follow up also and to return if any worsening. (LACY DE SANTIAGO) Departure Departure Disposition: HOME OR SELF CARE Condition: Stable Clinical Impression Primary Impression: Urticaria Referrals: SOMMER FONTAINE,ALFONZO WEEKS APRN,KRISTEL Fine (PCP/Family) Additional Instructions: Follow up with Kristel Weeks APRN or with Dr. Ang(content production specialist) for further evaluation. Take Benadryl every 6-8 hours for the next 24 hours. Return to the ER if tongue swelling, throat swelling, difficulty breathing or worsening of symptoms. Departure Forms: Customer Survey General Discharge Information Prescriptions: Current Visit Scripts Prednisone 5 TAB PO DAILY #10 TAB (LACY DE SANTIAGO) PA/CUPOLA WORKER Co-Sign Statement Statement: ED Attending supervision documentation- [] I saw and evaluated the patient. I have also reviewed all the pertinent lab results and diagnostic results. I agree with the findings and the plan of care as documented in the PA's/CUPOLA WORKER's documentation. [X] I have reviewed the ED Record and agree with the PA's/CUPOLA WORKER's documentation. [] Additions or exceptions (if any) to the PAs/CUPOLA WORKER's note and plan are summarized below: [] (MONSTER FONTAIEN,NAYELY Ivy)
[2016-05-28 15:12] VITALS: BP 131/69
[2016-05-28] MEDS ORDERED: PREDNISONE10 M2 PO (15:12)
== END 2016-05-28 15:17 ==
LOC: ERH 13:54
DX: L50.9 Urticaria, unspecified (principal)
CPT/HCPCS: 96374; 96375; J1200; J2920